=== PATIENT | female | born 1990 | race Caucasian/White ===

== ENCOUNTER → 2017-04-02 | Outpatient (CLI) | payer BC, OTHER ==
[~2017-04-02] MED LIST: PRD10T PO
--- NOTE | 2017-04-02 11:11 | Diagnostic Imaging Report ---
INDICATION: survey. TECHNIQUE: Multiple real-time grayscale images were obtained over the gravid uterus. COMPARISON: None FINDINGS: heart rate is 160 beats per minute. The placenta is posterior. No placenta previa. There is adequate amniotic fluid seen. The cervix is 3.9 cm in length and is closed. The posterior fossa appears unremarkable. No ventriculomegaly is seen. The four-chamber view, stomach, kidneys, two umbilical arteries, the cord insertion, and bladder appear unremarkable. The spine appears unremarkable. Biometrical measurements are as follows: Biparietal 5.3 cm, age 22 weeks 2 days. Head circumference 18.9 cm, age 21 weeks 2 days. Abdominal circumference 17.99 cm, age 22 weeks 6 days. Femur length 3.58 cm, age 21 weeks 3 days. Sonographic estimate age: 22 weeks 0 days. Sonographic estimated date of delivery: 08/06/2017. Estimated Weight: 475 gm (+/- 69 gm). LMP percentile: 93%. heart rate: 160 beats per minute. number: 1 of 1. IMPRESSION: Completed survey. Dictated by: Dictated on workstation # [id number]
== END ==
LOC: RAD 09:43
PROVIDERS: ATTEND Obstetrics & Gynecology
DX: Z36.89 Encounter for other specified antenatal screening (principal); Z3A.22 22 weeks gestation of pregnancy
CPT/HCPCS: 76805

== ENCOUNTER 2017-08-10 20:19 | Inpatient (IN) | payer BC ==
[~2017-08-10] VITALS: Ht 170.2 cm; Wt 93.0 kg
[2017-08-10] MEDS ORDERED: PREN-142 PO (20:41)
[2017-08-10 21:00] VITALS: BP 130/70
[2017-08-10] MEDS: D5 LR IV SOLUTION 1,000 ML IV SCH (21:25)
[2017-08-10] MEDS ORDERED: HYDROmorphone 2 MG/ML VIAL (DILAUDID) ONE (21:50)
[2017-08-10] MEDS: ONDANSETRON 4 MG/2 ML (SDV) Z0FRAN IVP PRN (21:57)
[2017-08-10] MEDS ORDERED: HYDROmorphone 1 MG/ML (DILAUDID) 1 ML SYRINGE IV ONE (22:00)
[2017-08-10 22:03] VITALS: BP 120/71
[2017-08-10 22:40] LABS: BASOPHILS % (AUTO) 0 % (0-10); EOSINOPHILS # (AUTO) 0.1 10^3/uL (0.0-0.3); EOSINOPHILS % (AUTO) 1 % (0-10); HEMATOCRIT 36 % (35-52); HEMOGLOBIN 12.7 G/DL (11.5-16.0); LYMPHOCYTES # (AUTO) 1.4 X 10^3 (1.0-4.0); LYMPHOCYTES % (AUTO) 17 % (12-44); MEAN CORPUSCULAR HGB CONC 35 G/DL (32-36); MEAN CORPUSCULAR VOLUME 87 FL (80-99); MEAN PLATELET VOLUME 11.7 FL (7.4-10.4); MONOCYTES # (AUTO) 0.7 X 10^3 (0.0-1.0); MONOCYTES % (AUTO) 8 % (0-12); NEUTROPHILS # (AUTO) 6.2 X 10^3 (1.8-7.8); NEUTROPHILS % (AUTO) 75 % (42-75); PLATELET COUNT 162 10^3/uL (130-400); RED BLOOD COUNT 4.17 10^6/uL (4.35-5.85); RED CELL DISTRIBUTION WIDTH 14.5 % (10.0-14.5); WHITE BLOOD COUNT 8.4 10^3/uL (4.3-11.0)
[2017-08-10 22:42] LABS: MEAN CORPUSCULAR HEMOGLOBIN 30 PG (25-34)
--- OUTSIDE RECORDS SUMMARY | 2017-08-10 22:46 | XMS REPORT | Continuity of Care Document ---
Demographics Preferred Language Unknown Marital Status Unknown Sikh Affiliation Unknown Race Unknown Ethnic Group Unknown Author Author [facility] Address Unknown Phone Unavailable Allergies There is no data. Medications There is no data. Problems Date Dx Coded Attending Type Code Diagnosis Diagnosed By 08/22/2012 V70.5 PREEMPLOYMENT/ PRESCHOOL EXAM Procedures Code [place] [address] URINE DRUG SCREEN (IN-HOUSE ) 08/22/2012 15267 TB TEST INTRADERMAL 08/22/2012 Results There is no data. Encounters ACCT No. Visit Date/Time Discharge Status Pt. Type Provider Facility Loc./Unit Complaint [id number] 08/22/2012 13:50:00 Document Registration
[2017-08-10] MEDS ORDERED: SUFENTA 0.6MCG/ML BUPIVA 0.125 100 ML ONE (23:26)
[2017-08-10] MEDS ORDERED: LIDOCAINE PF 2% 5 ML (XYLOCAINE) VIAL ONE (23:52)
[2017-08-10] MEDS ORDERED: BUPIVACAINE 0.25% 30 ML (SENSORCAINE) VIAL ONE (23:52)
[2017-08-10] MEDS ORDERED: fentaNYL INJECTION 100 MCG/2 ML AMP ONE (23:53)
[2017-08-10 23:56] VITALS: BP 119/76
[2017-08-10 23:59] VITALS: BP 120/78
[2017-08-11] VITALS (49 sets, daily range): BP systolic 92–141; BP diastolic 51–79
[2017-08-11] MEDS: EPIDURAL (SUFENTA 0.6MCG/ML BUPIVA 0.125%) 100 ML BAG EPI PRN ×2 (00:14→07:31)
[2017-08-11] MEDS ORDERED: LACTATED RINGERS 1,000 ML IV ONE ×2 (00:37)
[2017-08-11] MEDS ORDERED: NALOXONE 0.4 MG/ML 1 ML (NARCAN) VIAL IV PRN (00:45)
[2017-08-11] MEDS ORDERED: ONDANSETRON 4 MG/2 ML (SDV) Z0FRAN IV PRN (00:45)
[2017-08-11] MEDS: D5 LR IV SOLUTION 1,000 ML IV SCH ×3 (02:52→23:41)
[2017-08-11] MEDS: ONDANSETRON 4 MG/2 ML (SDV) Z0FRAN IVP PRN (02:54)
[2017-08-11] MEDS ORDERED: LIDOCAINE/EPI 2% 1:200,00 (XYLOCAINE) 10 ML VIAL ONE (08:11)
[2017-08-11] MEDS ORDERED: OXYTOCIN/NORMAL SALINE 1,000 ML IV ONE (08:18)
[2017-08-11] MEDS: OXYTOCIN/NORMAL SALINE 500 ML IV SCH ×2 (08:24→08:55)
--- NOTE | 2017-08-11 08:51 | OB Labor & Delivery Record ---
L&D History Date of Service Date of Service: August 11, 2017 History Expected Date of Delivery: August 13, 2017 Gestational Age in Weeks: 39 Hx : 1 Hx Para: 0 Complications Events: Meconium Stained Fluid, Routine care Operative Indications (Cesarea: N/A-Vaginal Delivery Intrapartal Events: None L&D Stage1 Stage One Onset of Labor - Date: August 11, 2017 Monitors and Tracing Monitor Mode: External Heart Rate: 120 Station: -1 Aix Administrator Variability: Average (6-10) Short Term Variability: Present Presentation: Vertex Vital Signs VS - Last 72 Hours, by Label 08/10/17 08/10/17 08/10/17 08/10/17 21:00 22:03 23:56 23:59 Temp 98.2 Pulse 75 64 65 61 Resp 18 B/P (MAP) 130/70 (90) 120/71 (87) 119/76 (90) 120/78 (92) Pulse Ox 100 100 O2 Delivery Room Air Room Air 08/11/17 08/11/17 08/11/17 08/11/17 00:02 00:05 00:08 00:11 Pulse 97 60 60 80 B/P (MAP) 116/74 (88) 119/79 (92) 110/69 (83) 129/74 (92) Pulse Ox 100 100 100 100 O2 Delivery Room Air Room Air Room Air Room Air 08/11/17 08/11/17 08/11/17 08/11/17 00:14 00:17 00:20 00:23 Pulse 75 80 85 75 B/P (MAP) 132/68 (89) 120/61 (80) 120/56 (77) 121/56 (77) Pulse Ox 100 100 100 100 O2 Delivery Room Air Room Air Room Air Room Air 08/11/17 08/11/17 08/11/17 08/11/17 00:26 00:34 00:39 00:43 Pulse 75 81 74 75 B/P (MAP) 123/65 (84) 117/65 (82) 119/63 (81) 116/57 (76) Pulse Ox 100 100 100 100 O2 Delivery Room Air Room Air Room Air Room Air 08/11/17 08/11/17 08/11/17 08/11/17 00:47 01:15 01:30 01:45 Pulse 74 67 75 71 B/P (MAP) 107/56 (73) 108/57 (74) 139/69 (92) 105/56 (72) Pulse Ox 100 100 100 100 O2 Delivery Room Air Room Air Room Air Room Air 08/11/17 08/11/17 08/11/17 08/11/17 02:00 02:15 02:30 02:45 Temp 97.8 Pulse 72 65 66 86 B/P (MAP) 130/63 (85) 125/66 (85) 122/64 (83) 128/58 (81) Pulse Ox 100 99 100 100 O2 Delivery Room Air Room Air Room Air Room Air 08/11/17 08/11/17 08/11/17 08/11/17 03:00 03:15 03:30 03:45 Pulse 71 71 81 72 B/P (MAP) 128/67 (87) 119/68 (85) 131/68 (89) 120/65 (83) Pulse Ox 100 100 100 100 O2 Delivery Room Air Room Air Room Air Room Air 08/11/17 08/11/17 08/11/17 08/11/17 04:00 04:15 04:30 04:45 Pulse 74 87 95 80 B/P (MAP) 118/64 (82) 125/75 (92) 141/73 (95) 135/71 (92) Pulse Ox 100 100 100 100 O2 Delivery Room Air Room Air Room Air Room Air 08/11/17 08/11/17 08/11/17 08/11/17 05:00 05:15 05:30 05:45 Pulse 92 80 105 81 B/P (MAP) 130/69 (89) 124/68 (86) 117/76 (90) 132/78 (96) Pulse Ox 100 100 100 100 O2 Delivery Room Air Room Air Room Air Room Air 08/11/17 08/11/17 08/11/17 08/11/17 06:00 06:15 06:30 06:45 Pulse 93 86 88 90 B/P (MAP) 136/79 (98) 133/60 (84) 117/68 (84) Pulse Ox 100 100 100 100 O2 Delivery Room Air Room Air Room Air Room Air 08/11/17 07:00 Pulse 78 B/P (MAP) 113/65 (81) Pulse Ox 100 O2 Delivery Room Air Rupture of Membranes Spontaneous Ruture of Membrane: No Amniotic Membrane Rupture Time: 08:00 Amniotic Membrane Fluid Desc.: Meconium Stained Vaginal Bleeding Description: Normal Show Progress/Notes natural labor progression to complete with bulging membranes. AROM this AM with mec stained fluid L&D Stage2 Stage Two Stage II Date: August 11, 2017 Monitors and Tracing Monitor Mode: External Heart Rate: 120 Monitor Decelerations: Variable Aix Administrator Variability: Average (6-10) Short Term Variability: Present Position: Right Occiput Anterior Presentation: Vertex Cord Descript/Complications Cord Vessel Description: 3 Vessels Delivery Type Delivery Method: Spontaneous Vaginal Anterior Shoulder: Right Episiotomy/Perineal Laceration Laceraction(s)/Extensions: Yes Episiotomy Description: Right Mediolateral Sutures Used: Vicryl Degree (describe repair) RML and left labial laceration repaired using 3-0 and 2-0 vicryl suture in usual fashion Condition of Delivery 1 minute Comment: 8 5 minute Comment: 9 Notes Live male weight 8lbs 2 oz Condition of Infant Condition of : Living Exam: No Observed Abnormalities Resuscitation Resuscitation: N/A - Spontaneous Resp L&D Stage3 Stage Three Stage III Date: August 11, 2017 Pictocin Pitocin Administration Comment: wide open 30 mu at delivery of placenta Placenta Delivery Placenta Delivery: Spontaneous Delivery Summary Summary Estimated blood loss (mL): 400 Attending at delivery: Michael Natarajan DO Condition of Delivery Examined: Cervix Examined, Uterus Explored Post Hemorrhage: No Condition of Mother stable Condition of (s) stable MICHAEL NATARAJAN DO August 11, 2017 8:51 am
[2017-08-11] MEDS ORDERED: DIBUCAINE (NUPERCAINAL) 1% OINT 30 GM TOP PRN (09:00)
[2017-08-11] MEDS ORDERED: HYDROcodone/APAP 5 MG/325 MG (LORTAB) TAB PO PRN (09:00)
[2017-08-11] MEDS ORDERED: TETANUS,DIPTH,PERTUSS P/F (BOOSTRIX) 0.5 ML VIAL IM ONE (09:00)
[2017-08-11] MEDS ORDERED: MEASLES,MUMPS,RUBELLA 1 EA INJ SQ ONE (09:00)
[2017-08-11] MEDS ORDERED: WITCH HAZEL(TUCKS) 40 EA JAR TOP PRN (09:00)
[2017-08-11] MEDS ORDERED: BENZOCAINE/MENTHOL (DERMOPLAST) 56 ML CAN TP PRN (09:00)
[2017-08-11] MEDS: IBUPROFEN 600 MG (MOTRIN) TAB PO SCH ×3 (09:45→20:50)
--- NOTE | 2017-08-11 12:10 | History & Physical-OB ---
OB - Chief Complaint & HPI Date/Time Date of Admission: Date of Admission: August 10, 2017 at 9:43 pm Time Seen by Provider: 08:00 Chief Complaint/History OB-Reason for Admission/Chief: Onset of Labor Hx : 1 Hx Para: 0 Expected Date of Delivery: August 13, 2017 Gestational Age in Weeks: 39 Gestational Age in Days: 5 Admission Nurse Assessment Rev: Yes History of Labs O pos Antibody neg RI RPR NR HBsAg NR HIV NR GC neg GBS neg Allergies and Home Medications Allergies Coded Allergies: No Known Drug Allergies (Unverified , 01/30/16) Home Medications Prednisone 10 Mg Tab, 40 MG PO DAILY Prescribed by: SURINDER RODRÍGUEZ on 01/30/16 0010 Vit No.124/Iron/FA 1 Each Tablet, 1 EACH PO DAILY, (Reported) Patient Home Medication List Home Medication List Reviewed: Yes OB - History Hx of Present Care: Yes Ultrasounds: Normal mid trimester US Obstetrical Complications: None Medical Complications: None Obstetrical History Hx : 1 Hx Para: 0 Delivery History Adverse Rxn to Tranfusion: No Patient Past Medical History n/a Social History/Family History HIV/AIDS: No Recent Infectious Disease Expo: No Sexually Transmitted Disease: No Alcohol Use: Denies Use Recreational Drug Use: No OB - Admission Exam Physical Exam Vitals: Vital Signs 08/10/17 08/11/17 08/11/17 21:00 02:45 07:00 Temp 97.8 Pulse 78 Resp 18 B/P (MAP) 113/65 (81) Pulse Ox 100 O2 Delivery Room Air HEENT: NCAT Heart: Rhythm Normal Lungs: Clear Abdomen: Gravid Extremities: Normal Reflexes: Normal Cervical Dilatation: 4cm Effacement: 75% Station: -1 Membranes: Intact Heart Rate: 130's Accelerations: Accelerations Present Decelerations: No Decelerations Short Term Variability: Present Skilled Nursing Variability: Average (6-25) Contractions on Admission: < 5 Minutes Apart Intensity: Firm Labs Laboratory Tests Test 08/10/17 22:30 Range/Units White Blood Count 8.4 4.3-11.0 10^3/uL Red Blood Count 4.17 L 4.35-5.85 10^6/uL Hemoglobin 12.7 11.5-16.0 G/DL Hematocrit 36 35-52 % Mean Corpuscular Volume 87 80-99 FL Mean Corpuscular Hemoglobin 30 25-34 PG Mean Corpuscular Hemoglobin Concent 35 32-36 G/DL Red Cell Distribution Width 14.5 10.0-14.5 % Platelet Count 162 130-400 10^3/uL Mean Platelet Volume 11.7 H 7.4-10.4 FL Neutrophils (%) (Auto) 75 42-75 % Lymphocytes (%) (Auto) 17 12-44 % Monocytes (%) (Auto) 8 0-12 % Eosinophils (%) (Auto) 1 0-10 % Basophils (%) (Auto) 0 0-10 % Neutrophils # (Auto) 6.2 1.8-7.8 X 10^3 Lymphocytes # (Auto) 1.4 1.0-4.0 X 10^3 Monocytes # (Auto) 0.7 0.0-1.0 X 10^3 Eosinophils # (Auto) 0.1 0.0-0.3 10^3/uL Basophils # (Auto) 0.0 0.0-0.1 10^3/uL OB - Assessment/Plan/Diagnosis Assessment Assessment: active labor Admission Dx 27 yo @ 39.5 Active labor GBS neg Admission Status: Inpatient Order (span 2 midnights) Reason for Inpatient Admission: 27 yo @ 39.5 Active labor GBS neg Plan Plan: Expectant Management MICHAEL NATARAJAN DO August 11, 2017 12:10 pm
[2017-08-11] MEDS: DOCUSATE SODIUM 100 MG (COLACE) CAP PO SCH ×2 (20:50→23:41)
[2017-08-11] MEDS: FERROUS SULF 325 MG (IRON) TAB PO SCH (23:40)
[2017-08-11] MEDS: CATHETER FLUSH 10 ML SYR IV SCH ×2 (23:41→23:42)
[2017-08-12 03:09] VITALS: BP 99/66
[2017-08-12] MEDS: IBUPROFEN 600 MG (MOTRIN) TAB PO SCH ×2 (03:09→08:59)
[2017-08-12 05:50] LABS: BASOPHILS % (AUTO) 0 % (0-10); EOSINOPHILS # (AUTO) 0.1 10^3/uL (0.0-0.3); EOSINOPHILS % (AUTO) 1 % (0-10); HEMATOCRIT 28 % (35-52); HEMOGLOBIN 9.8 G/DL (11.5-16.0); LYMPHOCYTES # (AUTO) 2.5 X 10^3 (1.0-4.0); LYMPHOCYTES % (AUTO) 22 % (12-44); MEAN CORPUSCULAR HEMOGLOBIN 30 PG (25-34); MEAN CORPUSCULAR HGB CONC 35 G/DL (32-36); MEAN CORPUSCULAR VOLUME 88 FL (80-99); MEAN PLATELET VOLUME 11.7 FL (7.4-10.4); MONOCYTES # (AUTO) 0.8 X 10^3 (0.0-1.0); MONOCYTES % (AUTO) 7 % (0-12); NEUTROPHILS # (AUTO) 7.9 X 10^3 (1.8-7.8); NEUTROPHILS % (AUTO) 70 % (42-75); PLATELET COUNT 153 10^3/uL (130-400); RED BLOOD COUNT 3.24 10^6/uL (4.35-5.85); RED CELL DISTRIBUTION WIDTH 14.5 % (10.0-14.5); WHITE BLOOD COUNT 11.3 10^3/uL (4.3-11.0)
[2017-08-12] MEDS ORDERED: PRENATAL VITAMIN 1 EA TAB PO SCH (07:00)
--- NOTE | 2017-08-12 08:14 | Discharge Inst-Women's Service ---
Discharge Inst-Women's Serv Depart Medication/Instructions New, Converted or Re-Newed RX: RX on Chart Consults/Follow Up Additional Follow Up: Yes Orders/Referrals Dr. Natarajan in 6 weeks Activity Activity: Activity as Tolerated Driving Instructions: No Driving for 1 Week NO SMOKING: NO SMOKING Nothing Inside Vagina: No Douching, No [place], No Tampons Diet Discharge Diet: No Restrictions Symptoms to Report to : Bleeding Excessive, Pain Increased, Fever Over 101 Degrees F, Vaginal Bleeding Increase, Questions/Concerns For Any Problems or Questions: Contact Your Physician Skin/Wound Care Bathing Instructions: Shower (or sitz baths x 2 weeks) MICHAEL NATARAJAN DO August 12, 2017 08:14
[2017-08-12] MEDS ORDERED: IBUP-844 PO (08:16)
[2017-08-12] MEDS ORDERED: DIBU30OI TOP (08:16)
[2017-08-12] MEDS ORDERED: FERR325T18 PO (08:16)
[2017-08-12] MEDS ORDERED: Benzocaine/Menthol TP (08:16)
[2017-08-12] MEDS ORDERED: ACHD5005 PO (08:16)
[2017-08-12] MEDS ORDERED: DOCU100C37 PO (08:16)
--- NOTE | 2017-08-12 08:30 | Postpartum Progress Note ---
Note Note Day # 1 Subjective: Patient is without complaints. Ambulating, voiding. Tolerating a regular diet without nausea or vomiting. Normal lochia. Pain is well controlled with oral pain medications. Objective: Vital Sign - Last 24 Hours 08/11/17 08/11/17 08/11/17 08/11/17 08:30 09:00 09:15 09:30 Pulse 107 96 90 89 B/P (MAP) 135/78 (97) 119/62 (81) 118/57 (77) 120/59 (79) O2 Delivery Room Air Room Air Room Air Room Air 08/11/17 08/11/17 08/11/17 08/11/17 10:50 13:50 18:45 23:31 Temp 98.0 98.0 98.1 Pulse 92 75 70 68 Resp 18 18 18 B/P (MAP) 100/51 (67) 111/66 (81) 115/68 (84) 92/51 (65) Pulse Ox 100 99 O2 Delivery Room Air Room Air Room Air Room Air 08/12/17 03:09 Temp 97.4 Pulse 64 Resp 18 B/P (MAP) 99/66 (77) Pulse Ox 100 O2 Delivery Room Air Physical Exam: General - Alert and oriented, no apparent distress Abdomen - Soft, appropriately tender to palpation, non-distended, fundus firm at umbilicus Extremities - no edema, negative Barb's bilaterally Assessment: PPD 1 NVD Acute blood loss anemia Plan: Routine care. Encourage breast feeding. Encourage ambulation. Ferrous sulfate supplementation. Plan for discharge today Vitals - Labs Vital Signs - I&O Vital Signs Date Time Temp Pulse Resp B/P (MAP) Pulse Ox O2 Delivery O2 Flow Rate FiO2 08/12/17 03:09 97.4 64 18 99/66 (77) 100 Room Air 08/11/17 23:31 98.1 68 18 92/51 (65) 99 Room Air 08/11/17 18:45 98.0 70 18 115/68 (84) Room Air 08/11/17 13:50 98.0 75 18 111/66 (81) 100 Room Air 08/11/17 10:50 92 100/51 (67) Room Air 08/11/17 09:30 89 120/59 (79) Room Air 08/11/17 09:15 90 118/57 (77) Room Air 08/11/17 09:00 96 119/62 (81) Room Air 08/11/17 08:30 107 135/78 (97) Room Air Labs Laboratory Tests 08/12/17 05:13: White Blood Count 11.3H, Red Blood Count 3.24L, Hemoglobin 9.8#L, Hematocrit 28L , Mean Corpuscular Volume 88, Mean Corpuscular Hemoglobin 30, Mean Corpuscular Hemoglobin Concent 35, Red Cell Distribution Width 14.5, Platelet Count 153, Mean Platelet Volume 11.7H, Neutrophils (%) (Auto) 70, Lymphocytes (%) (Auto) 22 , Monocytes (%) (Auto) 7, Eosinophils (%) (Auto) 1, Basophils (%) (Auto) 0, Neutrophils # (Auto) 7.9H, Lymphocytes # (Auto) 2.5, Monocytes # (Auto) 0.8, Eosinophils # (Auto) 0.1, Basophils # (Auto) 0.0 MICHAEL NATARAJAN DO August 12, 2017 8:30 am
[2017-08-12 08:40] VITALS: BP 102/62
[2017-08-12] MEDS: DOCUSATE SODIUM 100 MG (COLACE) CAP PO SCH (08:59)
[2017-08-12] MEDS: FERROUS SULF 325 MG (IRON) TAB PO SCH (08:59)
[2017-08-12] MEDS ORDERED: MEASLES,MUMPS,RUBELLA 1 EA INJ ONE (09:03)
[2017-08-12 12:30] VITALS: BP 102/62
== END 2017-08-12 12:30 | disposition home or self-care (01) | DRG 775 ==
LOC: WSo 20:19 → LDRP 20:20 → WSo 22:41 → LDRP 08-11 11:10
PROVIDERS: ADMIT Obstetrics & Gynecology; ATTEND Obstetrics & Gynecology
PROC: 10E0XZZ Delivery of Products of Conception, External Approach (ICD-10-PCS; principal; 2017-08-11)
PROC: 0HQ9XZZ Repair Perineum Skin, External Approach (ICD-10-PCS; 2017-08-11)
DX: O77.0 Labor and delivery complicated by meconium in amniotic fluid (principal); O70.0 First degree perineal laceration during delivery; O90.81 Anemia of the puerperium; D62 Acute posthemorrhagic anemia; Z3A.39 39 weeks gestation of pregnancy; Z37.0 Single live birth; Z23 Encounter for immunization
CPT/HCPCS: 36415; 85025; 86850; 86900; 86901; 88307; 90707; 99212

== ENCOUNTER → 2018-12-30 | Outpatient (CLI) | payer BC ==
[~2018-12-30] MED LIST changes: +ACHD5005 PO; +Benzocaine/Menthol TP; +DIBU30OI TOP; +DOCU100C37 PO; +FERR325T18 PO; +IBUP-844 PO; +PREN-142 PO
--- NOTE | 2018-12-30 17:32 | Diagnostic Imaging Report ---
INDICATION: survey. TECHNIQUE: Multiple real-time grayscale images were obtained over the gravid uterus. COMPARISON: There are no prior studies available for comparison. FINDINGS: There is a single live fetus in cephalic presentation. heart motion was noted and a rate of 133 bpm was recorded. There were no abnormalities identified. The growth parameters are fairly uniform. The placenta is anterior and there is no previa. The amniotic fluid volume is within normal limits. The cervix was identified and measures 3.3 cm in length. IMPRESSION: 1. There is a single live fetus of approximately 18 weeks 2 days gestation plus or -1.5 weeks. The EDC is May 31, 2019. 2. There were no abnormalities identified. 3. The growth parameters are fairly uniform. Biometrical measurements are as follows: Biparietal 3.89 cm, age 17 weeks 6 days. Head circumference 14.55 cm, age 17 weeks 6 days. Abdominal circumference 12.66 cm, age 18 weeks 2 days. Femur length 2.85 cm, age 18 weeks 6 days. Sonographic estimate age: 18 weeks 2 days. Sonographic estimated date of delivery: 05/31/2019. Estimated Weight: 238 gm (+/- 35 gm). LMP percentile: 94%. heart rate: 133 beats per minute. number: 1 of 1. Dictated by: Dictated on workstation # [id number]
== END ==
LOC: RAD 15:34
PROVIDERS: ATTEND Nurse Practitioner Women's Health
DX: Z34.92 Encounter for supervision of normal pregnancy, unspecified, second trimester (principal); Z3A.18 18 weeks gestation of pregnancy
CPT/HCPCS: 76805

== ENCOUNTER 2019-05-27 04:07 | Inpatient (IN) | payer BC ==
[2019-05-27] VITALS (28 sets, daily range): BP systolic 95–168; BP diastolic 51–81
[2019-05-27] MEDS ORDERED: D5 LR IV SOLUTION 1,000 ML IV ONE (04:23)
[2019-05-27] MEDS ORDERED: D5 LR IV SOLUTION 1,000 ML IV SCH (05:02)
[2019-05-27 05:22] LABS: BASOPHILS % (AUTO) 0 % (0-10); EOSINOPHILS # (AUTO) 0.1 10^3/uL (0.0-0.3); EOSINOPHILS % (AUTO) 1 % (0-10); HEMATOCRIT 36 % (35-52); HEMOGLOBIN 12.2 G/DL (11.5-16.0); LYMPHOCYTES # (AUTO) 2.2 X 10^3 (1.0-4.0); LYMPHOCYTES % (AUTO) 21 % (12-44); MEAN CORPUSCULAR HEMOGLOBIN 29 PG (25-34); MEAN CORPUSCULAR HGB CONC 34 G/DL (32-36); MEAN CORPUSCULAR VOLUME 85 FL (80-99); MEAN PLATELET VOLUME 11.5 FL (7.4-10.4); MONOCYTES # (AUTO) 0.7 X 10^3 (0.0-1.0); MONOCYTES % (AUTO) 7 % (0-12); NEUTROPHILS # (AUTO) 7.2 X 10^3 (1.8-7.8); NEUTROPHILS % (AUTO) 71 % (42-75); PLATELET COUNT 171 10^3/uL (130-400); RED CELL DISTRIBUTION WIDTH 14.7 % (10.0-14.5); WHITE BLOOD COUNT 10.1 10^3/uL (4.3-11.0)
[2019-05-27] MEDS ORDERED: LIDOCAINE PF 2% 5 ML (XYLOCAINE) VIAL ONE (05:41)
[2019-05-27] MEDS ORDERED: fentaNYL INJECTION 100 MCG/2 ML AMP ONE (05:41)
[2019-05-27] MEDS ORDERED: BUPIVACAINE 0.25% 30 ML (SENSORCAINE) VIAL ONE (05:41)
[2019-05-27] MEDS ORDERED: SUFENTA 0.6MCG/ML BUPIVA 0.125 100 ML ONE (05:44)
[2019-05-27] MEDS ORDERED: CATHETER FLUSH 10 ML SYR IV SCH ×4 (06:00→14:00)
[2019-05-27] MEDS ORDERED: LACTATED RINGERS 1,000 ML IV ONE ×2 (06:12)
[2019-05-27] MEDS ORDERED: ONDANSETRON 4 MG/2 ML (SDV) Z0FRAN IV PRN (06:15)
[2019-05-27] MEDS ORDERED: NALOXONE 0.4 MG/ML 1 ML (NARCAN) VIAL IV PRN (06:15)
[2019-05-27] MEDS ORDERED: EPIDURAL (SUFENTA 0.6MCG/ML BUPIVA 0.125%) 100 ML BAG EPI PRN (06:15)
[2019-05-27] MEDS ORDERED: LIDOCAINE/EPI 2% 1:200,00 (XYLOCAINE) 10 ML VIAL ONE (08:09)
[2019-05-27] MEDS ORDERED: OXYTOCIN PRE-MIX DRIP 500 ML IV ONE ×2 (08:09→09:11)
[2019-05-27] MEDS ORDERED: OXYTOCIN PRE-MIX DRIP 500 ML IV SCH ×2 (09:21→11:51)
[2019-05-27] MEDS ORDERED: MEASLES,MUMPS,RUBELLA 1 EA INJ SQ ONE ×2 (09:30→12:00)
[2019-05-27] MEDS ORDERED: DIBUCAINE (NUPERCAINAL) 1% OINT 30 GM TOP PRN ×3 (09:30→12:15)
[2019-05-27] MEDS ORDERED: BENZOCAINE/MENTHOL (DERMOPLAST) 60 ML CAN TP PRN ×3 (09:30→12:15)
[2019-05-27] MEDS ORDERED: TETANUS,DIPTH,PERTUSS P/F (BOOSTRIX) 0.5 ML VIAL IM ONE ×2 (09:30→12:00)
[2019-05-27] MEDS ORDERED: WITCH HAZEL(TUCKS) 40 EA JAR TOP PRN ×3 (09:30→12:15)
--- NOTE | 2019-05-27 11:20 | NUR ---
REPORT RECEIVED BY SHIVAM ALVAREZ AT THIS TIME
--- NOTE | 2019-05-27 11:25 | History & Physical-OB ---
OB - Chief Complaint & HPI Date/Time Date of Admission: Date of Admission: May 27, 2019 at 4:43 am Date seen by a Provider: May 27, 2019 Time Seen by a Provider: 05:00 Chief Complaint/History OB-Reason for Admission/Chief: Onset of Labor Hx : 2 Hx Para: 1 Expected Date of Delivery: Jun 06, 2019 Gestational Age in Weeks: 38 Gestational Age in Days: 4 Admission Nurse Assessment Rev: Yes History of Labs RI GBS neg Allergies and Home Medications Allergies Coded Allergies: No Known Drug Allergies (Unverified , 01/30/16) Home Medications Dibucaine 30 Gm Oint, 0 GM TOP UD PRN for PAIN- SEE INSTRUCTIONS Prescribed by: MICHAEL NATARAJAN on 08/12/17815 Docusate Sodium 100 Mg Capsule, 100 MG PO BID PRN for CONSTIPATION-1ST LINE Prescribed by: MICHAEL NATARAJAN on 08/12/17815 Ferrous Sulfate 325 Mg Tablet, 325 MG PO DAILY Prescribed by: MICHAEL NATARAJAN on 08/12/17815 Hydrocodone Bit/Acetaminophen 1 Tab Tab, 1-2 TAB PO Q4H PRN for PAIN-MODERATE Prescribed by: MICHAEL NATARAJAN on 08/12/17815 Ibuprofen 600 Mg Tablet, 600 MG PO Q6H Prescribed by: MICHAEL NATARAJAN on 08/12/17815 Vit No.124/Iron/FA 1 Each Tablet, 1 EACH PO DAILY, (Reported) [Benzocaine/Menthol] 56 ML AEROSOL, 56 ML TP UD PRN for PAIN- SEE INSTRUCTIONS EXTERNAL USE ONLY Prescribed by: MICHAEL NATARAJAN on 08/12/17815 Patient Home Medication List Home Medication List Reviewed: Yes OB - History Hx of Present Care: Yes Ultrasounds: Normal mid trimester US Obstetrical Complications: None Medical Complications: None Delivery History Adverse Rxn to Tranfusion: No Patient Past Medical History n/a Social History/Family History HIV/AIDS: No Recent Infectious Disease Expo: No Sexually Transmitted Disease: No Alcohol Use: Denies Use Recreational Drug Use: No OB - Admission Exam Physical Exam Vitals: Vital Signs 05/27/19 05/27/19 05:00 08:45 Temp 36.3 Pulse 63 Resp 18 B/P (MAP) 101/60 (74) Pulse Ox 100 HEENT: NCAT Heart: Rhythm Normal Lungs: Clear Abdomen: Gravid Extremities: Normal Reflexes: Normal Cervical Dilatation: 6cm Effacement: 75% Station: -1 Membranes: Intact Heart Rate: 140's Accelerations: Accelerations Present Decelerations: No Decelerations Short Term Variability: Present Weed Science Research Technician Variability: Average (6-25) Contractions on Admission: < 5 Minutes Apart Intensity: Firm Labs Laboratory Tests Test 05/27/19 05:05 Range/Units White Blood Count 10.1 4.3-11.0 10^3/uL Red Blood Count 4.23 L 4.35-5.85 10^6/uL Hemoglobin 12.2 11.5-16.0 G/DL Hematocrit 36 35-52 % Mean Corpuscular Volume 85 80-99 FL Mean Corpuscular Hemoglobin 29 25-34 PG Mean Corpuscular Hemoglobin Concent 34 32-36 G/DL Red Cell Distribution Width 14.7 H 10.0-14.5 % Platelet Count 171 130-400 10^3/uL Mean Platelet Volume 11.5 H 7.4-10.4 FL Neutrophils (%) (Auto) 71 42-75 % Lymphocytes (%) (Auto) 21 12-44 % Monocytes (%) (Auto) 7 0-12 % Eosinophils (%) (Auto) 1 0-10 % Basophils (%) (Auto) 0 0-10 % Neutrophils # (Auto) 7.2 1.8-7.8 X 10^3 Lymphocytes # (Auto) 2.2 1.0-4.0 X 10^3 Monocytes # (Auto) 0.7 0.0-1.0 X 10^3 Eosinophils # (Auto) 0.1 0.0-0.3 10^3/uL Basophils # (Auto) 0.0 0.0-0.1 10^3/uL OB - Assessment/Plan/Diagnosis Assessment Assessment: active labor Admission Dx 29 yo @ 38 weeks Active labor GBS neg Admission Status: Inpatient Order (span 2 midnights) Reason for Inpatient Admission: Active labor at term Plan Plan: Expectant Management MICHAEL NATARAJAN DO May 27, 2019 11:25 am
--- NOTE | 2019-05-27 11:30 | OB Labor & Delivery Record ---
L&D History Date of Service Date of Service: May 27, 2019 History Expected Date of Delivery: Jun 06, 2019 Gestational Age in Weeks: 38 Hx : 2 Hx Para: 1 Complications Events: Routine care Operative Indications (Cesarea: N/A-Vaginal Delivery Intrapartal Events: None L&D Stage1 Stage One Onset of Labor - Date: May 27, 2019 Monitors and Tracing Monitor Mode: External Heart Rate: 105 Monitor Accelerations: Uniform Monitor Decelerations: None Station: -1 Property And Supply Officer Variability: Average (6-10) Short Term Variability: Present Presentation: Vertex Vital Signs VS - Last 72 Hours, by Label 05/27/19 05/27/19 05/27/19 05/27/19 05:00 05:45 05:47 05:53 Temp 36.3 Pulse 70 71 73 72 Resp 18 B/P (MAP) 112/72 (85) 102/54 (70) 128/80 (96) Pulse Ox 100 100 100 05/27/19 2 2/ 2/ 05:54 05:58 06:00 06:02 Pulse 69 65 71 97 B/P (MAP) 117/81 (93) 119/78 (92) 132/76 (94) Pulse Ox 100 100 100 100 05/27/ 2// 2// 2/ 06:07 06:12 06:15 06:19 Pulse 90 90 93 91 B/P (MAP) 102/61 (75) 105/57 (73) 113/51 (71) Pulse Ox 100 100 100 100 05/27/ 2//20 2//20 2/ 06:30 06:45 07:00 07:20 Pulse 75 85 84 83 B/P (MAP) 95/52 (66) 118/78 (91) 108/65 (79) 104/57 (73) Pulse Ox 100 100 100 100 2//20 2//20 2//20 2//20 07:30 08:00 08:15 08:35 Pulse 83 76 68 68 B/P (MAP) 107/73 (84) 109/69 (82) 108/57 (74) 102/63 (76) Pulse Ox 100 100 100 100 2/20/20 08:45 Pulse 63 B/P (MAP) 101/60 (74) Pulse Ox 100 Rupture of Membranes Spontaneous Ruture of Membrane: No Amniotic Membrane Rupture Time: 08:00 Amniotic Membrane Fluid Desc.: Clear Vaginal Bleeding Description: Normal Show Induction/Anesthesia Epidural Cath Placement - Time: 0558 Progress/Notes Patient presented at 5 am in active labor, IV fluid bolus given and patient received epidural. She progressed to complete and +1 station with bulging membranes when I performed amniotomy. L&D Stage2 Stage Two Stage II Date: May 27, 2019 Monitors and Tracing Monitor Mode: External Heart Rate: 105 Monitor Accelerations: Uniform Monitor Decelerations: Variable Fci Variability: Average (6-10) Short Term Variability: Present Position: Right Occiput Anterior Presentation: Vertex Cord Descript/Complications Cord Vessel Description: 3 Vessels Delivery Type Delivery Method: Spontaneous Vaginal Anterior Shoulder: Right Episiotomy/Perineal Laceration Laceraction(s)/Extensions: Yes Degree (describe repair) 2nd degree perineal and right labial laceration repaired using 3-0 rapide suture in usual fashion Condition of Infant Delivery 1 minute Comment: 9 5 minute Comment: 9 Notes Live male infant weight 7lbs 13 oz. Condition of Infant Condition of Infant: Living Exam: No Observed Abnormalities Resuscitation Resuscitation: N/A - Spontaneous Resp L&D Stage3 Stage Three Stage III Date: May 27, 2019 Pictocin Pitocin Administration Comment: 30 mu wide open at delivery of placenta Placenta Delivery Placenta Delivery: Spontaneous Delivery Summary Summary Estimated blood loss (mL): 250 Attending at delivery: Michael Natarajan DO Condition of Delivery Examined: Cervix Examined, Uterus Explored Post Hemorrhage: No Condition of Mother stable Condition of (s) stable MICHAEL NATARAJAN DO May 27, 2019 11:30 am
[2019-05-27] MEDS ORDERED: DCS100C PO (11:36)
[2019-05-27] MEDS ORDERED: BENZ78AE2 TP (11:36)
[2019-05-27] MEDS ORDERED: IBUP-844 PO (11:36)
[2019-05-27] MEDS ORDERED: DIBU30OI TOP (11:36)
--- NOTE | 2019-05-27 11:37 | Discharge Inst-Women's Service ---
Discharge Inst-Women's Serv Depart Medication/Instructions New, Converted or Re-Newed RX: RX on Chart Final Diagnosis PPD 1 NVD Problems Reviewed?: Yes Consults/Follow Up Additional Follow Up: Yes Orders/Referrals Dr. Natarajan in 6 weeks Activity Activity: Activity as Tolerated Driving Instructions: No Driving for 1 Week NO SMOKING: NO SMOKING Nothing Inside Vagina: No Douching, No [place], No Tampons Diet Discharge Diet: No Restrictions Symptoms to Report to : Bleeding Excessive, Pain Increased, Fever Over 101 Degrees F, Vaginal Bleeding Increase, Questions/Concerns For Any Problems or Questions: Contact Your Physician MICHAEL NATARAJAN DO May 27, 2019 11:37 am
--- NOTE | 2019-05-27 11:45 | NUR ---
THIS RN CALLS DR NATARAJAN AT THIS TIME. DISCUSS ORDERS. ORDERS ARE PLACED PENDING ORDERS. DR DOES NOT HAVE THE TIME AT THE MOMENT TO FIX ORDERS, RN WILL GET IT FIGURED OUT AND REPLACE ORDER SET CORRECTLY. RN NOTIFIES THAT PT IS REQUESTING TO DC IV AT THIS TIME, STATES IT IS VERY PAINFUL. PT WAS A VERY DIFFICULT STICK TO PLACE CURRENTLY IV, TOOK 4+ ATTEMPTS ON PRINCIPAL CYBER ENGINEER (BY CHAIN SAW OPERATOR) TO PLACE. PT IS STABLE, BLEEDING SMALL AMOUNT, PITOCIN INFUSED. DR NATARAJAN OKAY TO DC IV AT THIS TIME.
[2019-05-27] MEDS ORDERED: IBUPROFEN 600 MG (MOTRIN) TAB PO ONE (11:56)
[2019-05-27] MEDS: IBUPROFEN 600 MG (MOTRIN) TAB PO SCH ×3 (12:00→23:54)
[2019-05-27] MEDS ORDERED: IBUPROFEN 600 MG (MOTRIN) TAB PO SCH ×2 (12:00)
--- NOTE | 2019-05-27 12:05 | NUR ---
THIS RN AT BEDSIDE, INTRODUCES SELF TO TO PT AND FAMILY. PHYSICAL ASSESSMENT COMPLETED, VSS, FUNDUS FIRM MIDLINE 2 BELOW UMBILICUS, LIGHT BLEEDING. PT WALKING WELL ON OWN TO BATHROOM. VISITORS AT BEDSIDE. CALL LIGHT WITHIN REACH.
[2019-05-27] MEDS ORDERED: DOCUSATE SODIUM 100 MG (COLACE) CAP PO SCH ×2 (21:00)
[2019-05-27] MEDS: DOCUSATE SODIUM 100 MG (COLACE) CAP PO SCH (23:54)
[2019-05-28 04:30] VITALS: BP 92/52
[2019-05-28 05:40] LABS: BASOPHILS % (AUTO) 0 % (0-10); EOSINOPHILS # (AUTO) 0.1 10^3/uL (0.0-0.3); EOSINOPHILS % (AUTO) 1 % (0-10); HEMATOCRIT 31 % (35-52); HEMOGLOBIN 10.3 G/DL (11.5-16.0); LYMPHOCYTES # (AUTO) 2.4 X 10^3 (1.0-4.0); LYMPHOCYTES % (AUTO) 22 % (12-44); MEAN CORPUSCULAR HEMOGLOBIN 29 PG (25-34); MEAN CORPUSCULAR HGB CONC 33 G/DL (32-36); MEAN CORPUSCULAR VOLUME 87 FL (80-99); MEAN PLATELET VOLUME 11.4 FL (7.4-10.4); MONOCYTES # (AUTO) 0.8 X 10^3 (0.0-1.0); MONOCYTES % (AUTO) 7 % (0-12); NEUTROPHILS # (AUTO) 7.6 X 10^3 (1.8-7.8); NEUTROPHILS % (AUTO) 70 % (42-75); PLATELET COUNT 167 10^3/uL (130-400); RED CELL DISTRIBUTION WIDTH 14.8 % (10.0-14.5); WHITE BLOOD COUNT 10.8 10^3/uL (4.3-11.0)
--- NOTE | 2019-05-28 07:23 | Anesthesia-Regional Post-Op ---
Regional Patient Condition Mental Status: Alert, Oriented x3 Circulation: Same as Pre-Op Headache: Absent Sensation: Full Recovery Motor Block: Absent Post Op Complications Complications None Follow Up Care/Instructions Patient Instructions None needed. Anesthesia/Patient Condition Patient is doing well, no complaints, stable vital signs, no apparent adverse anesthesia problems. No complications reported per nursing. D/C home per [facility] [place] Criteria: STEVE Carty CRNA May 28, 2019 07:23
--- NOTE | 2019-05-28 07:26 | Postpartum Progress Note ---
GISELE HANCOCK,MED STUDENT 05/28/19 0726: Note Note Day # 1 Subjective: Patient is without complaints. Ambulating, voiding. Tolerating a regular diet without nausea or vomiting. Normal lochia. Pain is well controlled with oral pain medications. Objective: Physical Exam: General - Alert and oriented, no apparent distress Abdomen - Soft, appropriately tender to palpation, non-distended, fundus firm at umbilicus Extremities - no edema, negative Barb's bilaterally Assessment: post- day # 1, status post spontaneous vaginal delivery. Hemodynamically stable hypotensive Plan: Routine care. Encourage breast feeding. Encourage ambulation. Ferrous sulfate supplementation. Plan for discharge today Vitals - Labs Vital Signs - I&O Vital Signs Date Time Temp Pulse Resp B/P (MAP) Pulse Ox O2 Delivery O2 Flow Rate FiO2 05/28/19 04:30 36.4 81 18 92/52 (65) 99 05/27/19 23:50 35.8 84 18 96/61 (73) 99 05/27/19 20:15 36.3 73 18 112/68 (83) 100 05/27/19 16:00 36.7 78 18 97/52 (67) 100 Room Air 05/27/19 12:05 36.1 85 18 111/57 (75) 100 Room Air 05/27/19 10:15 36.8 71 20 168/72 (104) 05/27/19 10:00 36.9 65 20 101/68 (79) 05/27/19 09:45 36.6 66 20 100/62 (75) 05/27/19 09:30 36.7 64 20 113/65 (81) 05/27/19 09:23 37.0 64 20 106/61 (76) 05/27/19 09:00 36.9 75 20 107/66 (80) 05/27/19 08:45 63 101/60 (74) 100 05/27/19 08:35 68 102/63 (76) 100 05/27/19 08:15 68 108/57 (74) 100 05/27/19 08:00 76 109/69 (82) 100 05/27/19 07:30 83 107/73 (84) 100 Labs Laboratory Tests 05/28/19 05:20: White Blood Count 10.8, Red Blood Count 3.57L, Hemoglobin 10.3L, Hematocrit 31L, Mean Corpuscular Volume 87, Mean Corpuscular Hemoglobin 29, Mean Corpuscular Hemoglobin Concent 33, Red Cell Distribution Width 14.8H, Platelet Count 167, Mean Platelet Volume 11.4H, Neutrophils (%) (Auto) 70, Lymphocytes (%) (Auto) 22, Monocytes (%) (Auto) 7, Eosinophils (%) (Auto) 1, Basophils (%) (Auto) 0, Neutrophils # (Auto) 7.6, Lymphocytes # (Auto) 2.4, Monocytes # (Auto) 0.8, Eosinophils # (Auto) 0.1, Basophils # (Auto) 0.0 GUILLAUME NATARAJAN DO 05/28/19 0758: Note Note Verification and Attestation of Medical Student E/M Service A medical student performed and documented this service in my presence. I reviewed and verified all information documented by the medical student and made modifications to such information, when appropriate. I personally performed the physical exam and medical decision making. Guillaume Natarajan, May 28, 2019,07:57 GISELE HANCOCK,MED STUDENT May 28, 2019 07:26 GUILLAUME NATARAJAN DO May 28, 2019 07:58
[2019-05-28 08:10] VITALS: BP 114/55
[2019-05-28] MEDS: IBUPROFEN 600 MG (MOTRIN) TAB PO SCH (08:36)
[2019-05-28] MEDS: DOCUSATE SODIUM 100 MG (COLACE) CAP PO SCH (08:37)
--- NOTE | 2019-05-28 12:10 | NUR ---
KAYKAY SANTANA demonstrates understanding of discharge instructions and accurately returns instructions upon questioning. Copy of Post-Discharge Instructions and Medication Discharge Instructions given to patient. KAYKAY SANTANA is able to manage continuing needs after discharge. Patients belongings returned to patient. Skin dry and intact; no breakdown noted. Patient discharged from 3311-1 on 05-28-19 at 1210. KAYKAY SANTANA left floor via ambulation, accompanied by staff and s/o.
== END 2019-05-28 12:10 | disposition home or self-care (01) | DRG 807 ==
LOC: WSo 04:07 → LDRP 04:09 → WSo 04:43 → LDRP 11:00
PROVIDERS: ADMIT Obstetrics & Gynecology; ATTEND Obstetrics & Gynecology
PROC: 10E0XZZ Delivery of Products of Conception, External Approach (ICD-10-PCS; principal; 2019-05-27)
PROC: 0KQM0ZZ Repair Perineum Muscle, Open Approach (ICD-10-PCS; 2019-05-27)
PROC: 0UQMXZZ Repair Vulva, External Approach (ICD-10-PCS; 2019-05-27)
DX: O70.1 Second degree perineal laceration during delivery (principal); Z37.0 Single live birth; O90.89 Other complications of the puerperium, not elsewhere classified; I95.9 Hypotension, unspecified; Z3A.38 38 weeks gestation of pregnancy; Z79.1 Long term (current) use of non-steroidal anti-inflammatories (NSAID)
CPT/HCPCS: 36415; 85025; 86850; 86900; 86901; 99212

== ENCOUNTER → 2020-09-18 | Outpatient (CLI) | payer BC ==
[~2020-09-18] MED LIST changes: +BENZ78AE5 TP; +DCS100C PO
--- NOTE | 2020-09-18 13:09 | Diagnostic Imaging Report ---
INDICATION: patient, survey. TECHNIQUE: Multiple real-time grayscale images were obtained over the gravid uterus. COMPARISON: None during this . FINDINGS: A single live intrauterine fetus is seen measuring 20 weeks 5 days in size with heart rate of 142 bpm. Placenta is anterior with no evidence of previa. Distance from the tip of the placenta to the internal cervical os was 4.4 cm. Cervical length was 5.4 cm. The fetus is in transverse presentation. Maternal adnexa showed no free fluid. survey showed normal-appearing bladder and stomach and four-chamber heart view. Normal-appearing cord insertion and three-vessel cord were seen. Normal views of the spine were seen. The intracranial structures were not well visualized due to position. kidneys also could not be well seen. Biometrical measurements are as follows: Biparietal 4.98 cm, age 21 weeks 1 days. Head circumference 18.03 cm, age 20 weeks 4 days. Abdominal circumference 14.97 cm, age 20 weeks 2 days. Femur length 3.39 cm, age 20 weeks 5 days. Sonographic estimate age: 20 weeks 5 days. Sonographic estimated date of delivery: 01/31/2021. Estimated Weight: 354 gm (+/- 52 gm). LMP percentile: 85%. heart rate: 142 beats per minute. number: 1 of 1. IMPRESSION: Single live intrauterine fetus measuring 20 weeks 5 days in size. There was no detectable abnormality. survey was limited however and at the kidneys and intracranial structures could not be well seen. Suggest limited follow-up as clinically warranted. Dictated by: Dictated on workstation # [id number]
== END ==
LOC: RAD 12:00
PROVIDERS: ATTEND Obstetrics & Gynecology
DX: Z34.02 Encounter for supervision of normal first pregnancy, second trimester (principal); Z3A.20 20 weeks gestation of pregnancy
CPT/HCPCS: 76805

== ENCOUNTER 2021-01-23 23:49 | Outpatient (CLI) | payer BC ==
[~2021-01-23] VITALS: Ht 167.7 cm; Wt 86.0 kg
[~2021-01-23 23:49] MED LIST changes: -DCS100C PO; +DOCU-239 PO
[2021-01-24 00:04] VITALS: BP 115/65
[2021-01-24 00:15] LABS: BILIRUBIN,URINE NEGATIVE (NEGATIVE); CLARITY,URINE CLEAR; COLOR,URINE YELLOW; GLUCOSE, URINE (UA) NEGATIVE (NEGATIVE); KETONES,URINE 1+ (NEGATIVE); LEUKOCYTE ESTERASE ,URINE NEGATIVE (NEGATIVE); NITRITE,URINE NEGATIVE (NEGATIVE); PROTEIN,URINE NEGATIVE (NEGATIVE)
[2021-01-24 00:24] LABS: BACTERIA,URINE NEGATIVE /HPF; SQUAMOUS EPITHELIAL CELL,UR 0-2 /HPF
[2021-01-24] MEDS ORDERED: FERR-84 PO (04:57)
--- NOTE | 2021-01-24 08:29 | Physician Query-Final Dx ---
Clinic Account Progress/Dx Physician Query: Please give diagnosis Please include # weeks gestation Date of Service Jan 23, 2021 at 23:49 MAURILIO BOURNE Jan 24, 2021 08:29
[2021-01-25] MEDS ORDERED: DIBU30OI TOP (08:58)
[2021-01-25] MEDS ORDERED: IBUP-844 PO (08:58)
[2021-01-25] MEDS ORDERED: DOCU100C37 PO (08:58)
[2021-01-25] MEDS ORDERED: ACHD5005 PO (08:58)
[2021-01-25] MEDS ORDERED: BENZ78AE5 TP (08:58)
== END 2021-01-24 05:45 | disposition home or self-care (01) ==
LOC: WSo 23:49 → LDRP 23:53 → WSo 01-24 05:45
PROVIDERS: ATTEND Obstetrics & Gynecology
DX: O47.1 False labor at or after 37 completed weeks of gestation (principal); Z3A.37 37 weeks gestation of pregnancy
CPT/HCPCS: 81000

== ENCOUNTER 2021-01-24 09:00 | Inpatient (IN) | payer BC ==
[2021-01-24] VITALS (55 sets, daily range): BP systolic 85–127; BP diastolic 48–76
[~2021-01-24] VITALS: Ht 167.7 cm; Wt 85.9 kg
[~2021-01-24 09:00] MED LIST changes: +FERR-84 PO
[2021-01-24] MEDS ORDERED: MINERAL OIL CONCENTRATE 99.9% 15 ML UDC TOP PRN (10:00)
[2021-01-24 10:02] LABS: BASOPHILS % (AUTO) 0 % (0-10); EOSINOPHILS # (AUTO) 0.1 10^3/uL (0.0-0.3); EOSINOPHILS % (AUTO) 2 % (0-10); HEMATOCRIT 34 % (35-52); HEMOGLOBIN 11.6 g/dL (11.5-16.0); LYMPHOCYTES # (AUTO) 1.5 10^3/uL (1.0-4.0); LYMPHOCYTES % (AUTO) 25 % (12-44); MEAN CORPUSCULAR HEMOGLOBIN 30 pg (25-34); MEAN CORPUSCULAR HGB CONC 34 g/dL (32-36); MEAN CORPUSCULAR VOLUME 88 fL (80-99); MEAN PLATELET VOLUME 12.3 fL (9.0-12.2); MONOCYTES # (AUTO) 0.5 10^3/uL (0.0-1.0); MONOCYTES % (AUTO) 8 % (0-12); NEUTROPHILS # (AUTO) 3.8 10^3/uL (1.8-7.8); NEUTROPHILS % (AUTO) 64 % (42-75); PLATELET COUNT 157 10^3/uL (130-400); WHITE BLOOD COUNT 5.9 10^3/uL (4.3-11.0)
[2021-01-24] MEDS: D5 LR IV SOLUTION 1,000 ML IV SCH ×2 (10:15→18:50)
[2021-01-24] MEDS ORDERED: fentaNYL 2 mcg/ml BUPIVA 0.125 100 ML ONE (11:21)
[2021-01-24] MEDS ORDERED: BUPIVACAINE 0.25% 30 ML (SENSORCAINE) VIAL ONE (11:23)
[2021-01-24] MEDS ORDERED: fentaNYL INJ 100 MCG/2 ML AMP ONE (11:25)
[2021-01-24] MEDS ORDERED: fentaNYL 2 mcg/ml BUPIVA 0.125 100 ML IV SCH (12:00)
[2021-01-24] MEDS ORDERED: CATHETER FLUSH 10 ML SYR IV PRN (12:00)
[2021-01-24] MEDS ORDERED: NALOXONE 0.4 MG/ML 1 ML (NARCAN) VIAL IV PRN ×2 (12:00→18:45)
[2021-01-24] MEDS ORDERED: LACTATED RINGERS 1,000 ML IV ONE (12:00)
[2021-01-24] MEDS ORDERED: FLU QUADRIvalent (3YOA+) 60 mcg/0.5 ml 2021-22(AFLURIA) IM ONE (12:30)
[2021-01-24] MEDS ORDERED: CATHETER FLUSH 10 ML SYR IV SCH ×2 (14:00→22:00)
[2021-01-24] MEDS ORDERED: OXYTOCIN PRE-MIX DRIP 500 ML IV ONE (14:19)
[2021-01-24] MEDS ORDERED: OXYTOCIN PRE-MIX DRIP 500 ML IV SCH ×2 (14:30→18:45)
--- NOTE | 2021-01-24 16:00 | History & Physical-OB ---
OB - Chief Complaint & HPI Date/Time Date of Admission: Date of Admission: Jan 24, 2021 at 9:00 am Date seen by a Provider: Jan 24, 2021 Time Seen by a Provider: 08:00 Chief Complaint/History OB-Reason for Admission/Chief: Onset of Labor Hx : 3 Hx Para: 2 Expected Date of Delivery: Feb 07, 2021 Gestational Age in Weeks: 38 Gestational Age in Days: 0 Other reason for admission: Patient sent from office 6 cm dilated Admission Nurse Assessment Rev: Yes History of Labs O pos Antibody neg RI RPR NR HBsAg NR HIV NR GC neg GBS neg Allergies and Home Medications Allergies Coded Allergies: No Known Drug Allergies (Unverified , 01/30/16) Patient Home Medication List Home Medication List Reviewed: Yes Ferrous Sulfate (Iron) 325 Mg Tablet, 325 MG PO DAILY, (Reported) Entered as Reported by: CHRISTIANO BANKS on 01/24/21 5210 Last Action: Reviewed Vit No.124/Iron/FA ( Vitamin Tablet) 1 Each Tablet, 1 EACH PO DAILY, (Reported) Entered as Reported by: MYRON SUE on 08/10/172040 Last Action: Reviewed Discontinued Medications Benzocaine/Menthol (Dermoplast Pain Relieving Akins) 78 Gm Aerosol, 56 ML TP UD PRN for PAIN- SEE INSTRUCTIONS Discontinued Reason: No Longer Taking Prescribed by: MICHAEL NATARAJAN on 05/27/19 1136 Dibucaine (Dibucaine) 30 Gm Oint, 0 GM TOP UD PRN for PAIN- SEE INSTRUCTIONS Discontinued Reason: No Longer Taking Prescribed by: MICHAEL NATARAJAN on 05/27/19 1136 Docusate Sodium (Dok) 100 Mg Capsule, 100 MG PO BID PRN for CONSTIPATION-1ST L INE Discontinued Reason: No Longer Taking Prescribed by: MICHAEL NATARAJAN on 05/27/19 1136 Ibuprofen (Ibu) 600 Mg Tablet, 600 MG PO Q6HR Discontinued Reason: No Longer Taking Prescribed by: MICHAEL NATARAJAN on 05/27/19 1136 OB - History Hx of Present Care: Yes Ultrasounds: Normal mid trimester US Obstetrical Complications: None Medical Complications: None Delivery History Adverse Rxn to Tranfusion: No Patient Past Medical History n/a Social History/Family History 2nd Hand Smoke Exposure: No Immunizations Hepatitis A: Yes Hepatitis B: Yes OB - Admission Exam Physical Exam Vitals: Vital Signs 01/24/21 01/24/21 11:57 12:27 Temp 36.4 Pulse 75 Resp 20 B/P (MAP) 103/58 (73) Pulse Ox 100 O2 Delivery Room Air HEENT: NCAT Heart: Rhythm Normal Lungs: Clear Abdomen: Gravid Extremities: Normal Reflexes: Normal Cervical Dilatation: 6cm Effacement: 75% Station: -1 Membranes: Intact Heart Rate: 120's Accelerations: Accelerations Present Decelerations: No Decelerations Short Term Variability: Present Spreader Box Operator Variability: Average (6-25) Contractions on Admission: 6-10 Minutes Apart Intensity: Mild Labs Laboratory Tests Test 01/24/21 09:40 Range/Units White Blood Count 5.9 4.3-11.0 10^3/uL Red Blood Count 3.86 3.80-5.11 10^6/uL Hemoglobin 11.6 11.5-16.0 g/dL Hematocrit 34 L 35-52 % Mean Corpuscular Volume 88 80-99 fL Mean Corpuscular Hemoglobin 30 25-34 pg Mean Corpuscular Hemoglobin Concent 34 32-36 g/dL Red Cell Distribution Width 13.8 10.0-14.5 % Platelet Count 157 130-400 10^3/uL Mean Platelet Volume 12.3 H 9.0-12.2 fL Immature Granulocyte % (Auto) 0 % Neutrophils (%) (Auto) 64 42-75 % Lymphocytes (%) (Auto) 25 12-44 % Monocytes (%) (Auto) 8 0-12 % Eosinophils (%) (Auto) 2 0-10 % Basophils (%) (Auto) 0 0-10 % Neutrophils # (Auto) 3.8 1.8-7.8 10^3/uL Lymphocytes # (Auto) 1.5 1.0-4.0 10^3/uL Monocytes # (Auto) 0.5 0.0-1.0 10^3/uL Eosinophils # (Auto) 0.1 0.0-0.3 10^3/uL Basophils # (Auto) 0.0 0.0-0.1 10^3/uL Immature Granulocyte # (Auto) 0.0 0.0-0.1 10^3/uL OB - Assessment/Plan/Diagnosis Assessment Assessment: active labor Admission Dx 30 yo @ 38 weeks Advanced cervical dilatation Active labor Admission Status: Inpatient Order (span 2 midnights) Reason for Inpatient Admission: Active labor at 38 weeks Plan Plan: Expectant Management (AROM) MICHAEL NATARAJAN DO Jan 24, 2021 4:00 pm
[2021-01-24] MEDS ORDERED: CALCIUM CARBONATE 500 MG (TUMS) TAB.CHEW PO ONE (17:30)
--- NOTE | 2021-01-24 18:42 | OB Labor & Delivery Record ---
L&D History Date of Service Date of Service: Jan 24, 2021 History Expected Date of Delivery: Feb 07, 2021 Gestational Age in Weeks: 38 Hx : 3 Hx Para: 2 Complications Events: Routine care Operative Indications (Cesarea: N/A-Vaginal Delivery Intrapartal Events: None L&D Stage1 Stage One Onset of Labor - Date: Jan 24, 2021 Monitors and Tracing Monitor Mode: Internal Heart Rate: 110 Station: -2 Detention Variability: Average (6-10) Short Term Variability: Present Presentation: Vertex Vital Signs VS - Last 72 Hours, by Label 01/24/21 01/24/21 01/24/21 01/24/21 09:30 09:45 10:00 10:15 Temp 36.6 Pulse 77 78 78 78 Resp 20 20 20 20 B/P (MAP) 117/62 (80) 108/53 (71) 107/66 (80) 111/56 (74) Pulse Ox 99 100 99 99 O2 Delivery Room Air Room Air Room Air Room Air 01/24/21 01/24/21 01/24/21 01/24/21 10:30 10:45 11:00 11:06 Temp 36.6 Pulse 64 69 65 77 Resp 20 20 20 20 B/P (MAP) 108/65 (79) 100/57 (71) 107/65 (79) Pulse Ox 100 100 100 99 O2 Delivery Room Air Room Air Room Air Room Air 01/24/21 01/24/21 01/24/21 01/24/21 11:15 11:30 11:33 11:45 Pulse 71 75 67 75 Resp 20 20 20 20 B/P (MAP) 115/73 (87) 114/73 (87) 110/69 (83) 114/73 (87) Pulse Ox 100 100 100 100 O2 Delivery Room Air Room Air Room Air Room Air 01/24/21 01/24/21 01/24/21 01/24/21 11:45 11:48 11:51 11:54 Pulse 70 72 90 82 Resp 20 20 20 20 B/P (MAP) 109/66 (80) 109/65 (80) 101/57 (72) 96/48 (64) Pulse Ox 100 100 100 100 O2 Delivery Room Air Room Air Room Air Room Air 01/24/21 01/24/21 01/24/21 01/24/21 11:57 12:00 12:03 12:06 Temp 36.4 Pulse 82 85 77 96 Resp 20 20 20 20 B/P (MAP) 99/58 (72) 85/49 (61) 101/58 (72) 107/59 (75) Pulse Ox 100 100 100 100 O2 Delivery Room Air Room Air Room Air Room Air 01/24/21 01/24/21 01/24/21 01/24/21 12:09 12:12 12:15 12:18 Pulse 81 72 91 80 Resp 20 20 20 20 B/P (MAP) 100/57 (71) 107/61 (76) 105/61 (76) 106/56 (73) Pulse Ox 100 100 100 100 O2 Delivery Room Air Room Air Room Air Room Air 01/24/21 01/24/21 01/24/21 01/24/21 12:21 12:24 12:27 12:30 Pulse 91 83 75 79 Resp 20 20 20 20 B/P (MAP) 106/55 (72) 109/57 (74) 103/58 (73) 99/54 (69) Pulse Ox 100 100 100 100 O2 Delivery Room Air Room Air Room Air Room Air 01/24/21 01/24/21 01/24/21 01/24/21 12:45 13:00 13:15 13:30 Temp 36.7 Pulse 73 77 73 70 Resp 20 20 20 20 B/P (MAP) 102/55 (71) 97/55 (69) 103/55 (71) 102/57 (72) Pulse Ox 100 100 100 100 O2 Delivery Room Air Room Air Room Air Room Air 01/24/21 01/24/21 01/24/21 01/24/21 13:45 14:00 14:15 14:30 Pulse 67 74 71 80 Resp 20 20 20 20 B/P (MAP) 106/54 (71) 91/51 (64) 99/55 (70) 101/56 (71) Pulse Ox 100 100 100 100 O2 Delivery Room Air Room Air Room Air Room Air 01/24/21 01/24/21 01/24/21 01/24/21 14:45 15:00 15:15 15:30 Pulse 69 69 66 81 Resp 20 20 20 20 B/P (MAP) 99/54 (69) 117/57 (77) 102/54 (70) 91/56 (68) Pulse Ox 100 100 100 100 O2 Delivery Room Air Room Air Room Air Room Air 01/24/21 01/24/21 01/24/21 01/24/21 15:45 16:00 16:15 16:30 Pulse 63 68 68 65 Resp 20 20 20 20 B/P (MAP) 96/54 (68) 107/63 (78) 112/53 (72) 106/55 (72) Pulse Ox 100 100 100 98 O2 Delivery Room Air Room Air Room Air Room Air 01/24/21 01/24/21 01/24/21 01/24/21 16:45 17:00 17:15 17:30 Temp 36.6 Pulse 78 78 42 67 Resp 20 20 20 20 B/P (MAP) 103/58 (73) 103/58 (73) 114/56 (75) Pulse Ox 100 100 100 100 O2 Delivery Room Air Room Air Room Air Room Air 01/24/21 01/24/21 01/24/21 17:45 18:00 18:15 Pulse 78 78 78 Resp 20 20 20 B/P (MAP) 127/76 (93) 121/57 (78) 102/60 (74) Pulse Ox 100 O2 Delivery Room Air Room Air Room Air Rupture of Membranes Spontaneous Ruture of Membrane: No Amniotic Membrane Rupture Time: 1204 Amniotic Membrane Fluid Desc.: Clear Vaginal Bleeding Description: Normal Show Induction/Anesthesia Epidural Cath Placement - Time: 1136 Progress/Notes Patient admitted at 6 cm, epidural received and arom performed shortly after. She was started on low dose pitocin augmentation and progressed to complete and+ 2 station. L&D Stage2 Stage Two Stage II Date: Jan 24, 2021 Monitors and Tracing Monitor Mode: Internal Heart Rate: 110 Monitor Decelerations: Variable Tower Hoist Operator Variability: Average (6-10) Short Term Variability: Present Position: Right Occiput Anterior Presentation: Vertex Cord Descript/Complications Cord Vessel Description: 3 Vessels Delivery Type Infant Delivery Method: Spontaneous Vaginal Anterior Shoulder: Left Episiotomy/Perineal Laceration Laceraction(s)/Extensions: Yes Episiotomy Description: Perineal Extension/lac (1st degree perineal and right labial laceration repaired using 3-0 rapide vicyrl suture in usual fashion), 1st degree Condition of Delivery 1 minute Comment: 9 5 minute Comment: 9 Notes Live female weight 7lbs 13 oz Condition of Condition of : Living Exam: No Observed Abnormalities Resuscitation Resuscitation: N/A - Spontaneous Resp L&D Stage3 Stage Three Stage III Date: Jan 24, 2021 Pictocin Pitocin Administration mu/min: 4 Pitocin ml/hr: 4 Pitocin Administration Comment: 30 mu wide open at delivery of placenta Placenta Delivery Placenta Delivery: Spontaneous Delivery Summary Summary Estimated blood loss (mL): 300 Attending at delivery: Michael Natarajan DO Condition of Delivery Examined: Cervix Examined, Uterus Explored Post Hemorrhage: No Condition of Mother stable Condition of Infant (s) stable MICHAEL NATARAJAN DO Jan 24, 2021 18:42
[2021-01-24] MEDS ORDERED: MEASLES,MUMPS,RUBELLA 1 EA INJ SQ ONE (18:45)
[2021-01-24] MEDS ORDERED: TETANUS,DIPTH,PERTUSS P/F (BOOSTRIX) 0.5 ML VIAL IM ONE (18:45)
[2021-01-24] MEDS ORDERED: DIBUCAINE 1% OINTMENT 30 GM TUBE TOP PRN (18:45)
[2021-01-24] MEDS ORDERED: WITCH HAZEL(TUCKS) 40 EA JAR TOP PRN (18:45)
[2021-01-24] MEDS ORDERED: BENZOCAINE/MENTHOL (DERMOPLAST) 56 ML CAN TP PRN (18:45)
[2021-01-24] MEDS ORDERED: HYDROcodone/APAP 5 MG/325 MG (LORTAB) TAB PO PRN (18:45)
[2021-01-24] MEDS ORDERED: IBUPROFEN 600 MG (MOTRIN) TAB PO ONE (19:56)
[2021-01-24] MEDS: IBUPROFEN 600 MG (MOTRIN) TAB PO SCH (20:15)
[2021-01-24] MEDS: DOCUSATE SODIUM 100 MG (COLACE) CAP PO SCH (20:15)
[2021-01-25 03:50] VITALS: BP 94/52
[2021-01-25] MEDS: IBUPROFEN 600 MG (MOTRIN) TAB PO SCH ×3 (03:51→16:05)
[2021-01-25 05:37] LABS: BASOPHILS % (AUTO) 0 % (0-10); EOSINOPHILS # (AUTO) 0.2 10^3/uL (0.0-0.3); EOSINOPHILS % (AUTO) 2 % (0-10); HEMATOCRIT 33 % (35-52); HEMOGLOBIN 11.4 g/dL (11.5-16.0); LYMPHOCYTES # (AUTO) 1.9 10^3/uL (1.0-4.0); LYMPHOCYTES % (AUTO) 21 % (12-44); MEAN CORPUSCULAR HEMOGLOBIN 31 pg (25-34); MEAN CORPUSCULAR HGB CONC 35 g/dL (32-36); MEAN CORPUSCULAR VOLUME 88 fL (80-99); MEAN PLATELET VOLUME 12.5 fL (9.0-12.2); MONOCYTES # (AUTO) 0.6 10^3/uL (0.0-1.0); MONOCYTES % (AUTO) 7 % (0-12); NEUTROPHILS # (AUTO) 6.3 10^3/uL (1.8-7.8); NEUTROPHILS % (AUTO) 70 % (42-75); PLATELET COUNT 157 10^3/uL (130-400)
[2021-01-25] MEDS ORDERED: PRENATAL VITAMIN 1 EA TAB PO SCH (07:00)
[2021-01-25 08:26] VITALS: BP 110/58
[2021-01-25] MEDS: DOCUSATE SODIUM 100 MG (COLACE) CAP PO SCH (08:27)
--- NOTE | 2021-01-25 08:56 | Postpartum Progress Note ---
Note Note Day # 1 Subjective: Patient is without complaints. Ambulating, voiding. Tolerating a regular diet without nausea or vomiting. Normal lochia. Pain is well controlled with oral pain medications. Objective: Physical Exam: General - Alert and oriented, no apparent distress Abdomen - Soft, appropriately tender to palpation, non-distended, fundus firm at umbilicus Extremities - no edema, negative Barb's bilaterally Assessment: PPD 1 NVD Acute blood loss anemia Plan: Routine care. Encourage breast feeding. Encourage ambulation. Ferrous sulfate supplementation. Plan for discharge today pending infant release Vitals - Labs Vital Signs - I&O Vital Signs Date Time Temp Pulse Resp B/P (MAP) Pulse Ox O2 Delivery O2 Flow Rate FiO2 01/25/21 08:26 36.9 81 18 110/58 (75) 99 Room Air 01/25/21 03:50 36.7 76 20 94/52 (66) 98 Room Air 01/24/21 23:30 37.0 82 20 90/54 (66) 86 Room Air 01/24/21 19:39 80 20 120/67 (84) Room Air 01/24/21 19:24 66 20 111/63 (79) Room Air 01/24/21 19:10 71 20 113/75 (88) Room Air 01/24/21 18:39 73 20 114/64 (81) Room Air 01/24/21 18:30 67 20 111/65 (80) Room Air 01/24/21 18:15 78 20 102/60 (74) Room Air 01/24/21 18:00 78 20 121/57 (78) Room Air 01/24/21 17:45 78 20 127/76 (93) 100 Room Air 01/24/21 17:30 67 20 114/56 (75) 100 Room Air 01/24/21 17:15 36.6 42 20 100 Room Air 01/24/21 17:00 78 20 103/58 (73) 100 Room Air 01/24/21 16:45 78 20 103/58 (73) 100 Room Air 01/24/21 16:30 65 20 106/55 (72) 98 Room Air 01/24/21 16:15 68 20 112/53 (72) 100 Room Air 01/24/21 16:00 68 20 107/63 (78) 100 Room Air 01/24/21 15:45 63 20 96/54 (68) 100 Room Air 01/24/21 15:30 81 20 91/56 (68) 100 Room Air 01/24/21 15:15 66 20 102/54 (70) 100 Room Air 01/24/21 15:00 69 20 117/57 (77) 100 Room Air 01/24/21 14:45 69 20 99/54 (69) 100 Room Air 01/24/21 14:30 80 20 101/56 (71) 100 Room Air 01/24/21 14:15 71 20 99/55 (70) 100 Room Air 01/24/21 14:00 74 20 91/51 (64) 100 Room Air 01/24/21 13:45 67 20 106/54 (71) 100 Room Air 01/24/21 13:30 36.7 70 20 102/57 (72) 100 Room Air 01/24/21 13:15 73 20 103/55 (71) 100 Room Air 01/24/21 13:00 77 20 97/55 (69) 100 Room Air 01/24/21 12:45 73 20 102/55 (71) 100 Room Air 01/24/21 12:30 79 20 99/54 (69) 100 Room Air 01/24/21 12:27 75 20 103/58 (73) 100 Room Air 01/24/21 12:24 83 20 109/57 (74) 100 Room Air 01/24/21 12:21 91 20 106/55 (72) 100 Room Air 01/24/21 12:18 80 20 106/56 (73) 100 Room Air 01/24/21 12:15 91 20 105/61 (76) 100 Room Air 01/24/21 12:12 72 20 107/61 (76) 100 Room Air 01/24/21 12:09 81 20 100/57 (71) 100 Room Air 01/24/21 12:06 96 20 107/59 (75) 100 Room Air 01/24/21 12:03 77 20 101/58 (72) 100 Room Air 01/24/21 12:00 85 20 85/49 (61) 100 Room Air 01/24/21 11:57 36.4 82 20 99/58 (72) 100 Room Air 01/24/21 11:54 82 20 96/48 (64) 100 Room Air 01/24/21 11:51 90 20 101/57 (72) 100 Room Air 01/24/21 11:48 72 20 109/65 (80) 100 Room Air 01/24/21 11:45 70 20 109/66 (80) 100 Room Air 01/24/21 11:45 75 20 114/73 (87) 100 Room Air 01/24/21 11:33 67 20 110/69 (83) 100 Room Air 01/24/21 11:30 75 20 114/73 (87) 100 Room Air 01/24/21 11:15 71 20 115/73 (87) 100 Room Air 01/24/21 11:06 36.6 77 20 99 Room Air 01/24/21 11:00 65 20 107/65 (79) 100 Room Air 01/24/21 10:45 69 20 100/57 (71) 100 Room Air 01/24/21 10:30 64 20 108/65 (79) 100 Room Air 01/24/21 10:15 78 20 111/56 (74) 99 Room Air 01/24/21 10:00 78 20 107/66 (80) 99 Room Air 01/24/21 09:45 78 20 108/53 (71) 100 Room Air 01/24/21 09:30 36.6 77 20 117/62 (80) 99 Room Air I & O 01/25/21 07:00 Intake Total 2000 ml Balance 2000 ml Labs Laboratory Tests 01/24/21 09:40: White Blood Count 5.9, Red Blood Count 3.86, Hemoglobin 11.6, Hematocrit 34L, Mean Corpuscular Volume 88, Mean Corpuscular Hemoglobin 30, Mean Corpuscular Hemoglobin Concent 34, Red Cell Distribution Width 13.8, Platelet Count 157, Mean Platelet Volume 12.3H, Immature Granulocyte % (Auto) 0, Neutrophils (%) (Auto) 64, Lymphocytes (%) (Auto) 25, Monocytes (%) (Auto) 8, Eosinophils (%) (Auto) 2, Basophils (%) (Auto) 0, Neutrophils # (Auto) 3.8, Lymphocytes # (Auto) 1.5, Monocytes # (Auto) 0.5, Eosinophils # (Auto) 0.1, Basophils # (Auto) 0.0, Immature Granulocyte # (Auto) 0.0 01/25/21 05:12: White Blood Count 9.0, Red Blood Count 3.74L, Hemoglobin 11.4L, Hematocrit 33L, Mean Corpuscular Volume 88, Mean Corpuscular Hemoglobin 31, Mean Corpuscular Hemoglobin Concent 35, Red Cell Distribution Width 13.8, Platelet Count 157, Mean Platelet Volume 12.5H, Immature Granulocyte % (Auto) 0, Neutrophils (%) (Auto) 70, Lymphocytes (%) (Auto) 21, Monocytes (%) (Auto) 7, Eosinophils (%) (Auto) 2, Basophils (%) (Auto) 0, Neutrophils # (Auto) 6.3, Lymphocytes # (Auto) 1.9, Monocytes # (Auto) 0.6, Eosinophils # (Auto) 0.2, Basophils # (Auto) 0.0, Immature Granulocyte # (Auto) 0.0 MICHAEL NATARAJAN DO Jan 25, 2021 08:56
--- NOTE | 2021-01-25 08:57 | Discharge Inst-Women's Service ---
Discharge Inst-Women's Serv Depart Medication/Instructions New, Converted or Re-Newed RX: RX on Chart Final Diagnosis PPD 1 NVD Problems Reviewed?: Yes Consults/Follow Up Additional Follow Up: Yes Orders/Referrals Dr. Natarajan in 6 weeks Activity Activity: Activity as Tolerated Driving Instructions: No Driving for 1 Week NO SMOKING: NO SMOKING Nothing Inside Vagina: No Douching, No [place], No Tampons Diet Discharge Diet: No Restrictions Symptoms to Report to : Bleeding Excessive, Pain Increased, Fever Over 101 Degrees F, Vaginal Bleeding Increase, Questions/Concerns For Any Problems or Questions: Contact Your Physician MICHAEL NATARAJAN DO Jan 25, 2021 08:57
[2021-01-25] MEDS ORDERED: IBUP-844 PO (08:58)
[2021-01-25] MEDS ORDERED: DIBU30OI TOP (08:58)
[2021-01-25] MEDS ORDERED: BENZ78AE5 TP (08:58)
[2021-01-25] MEDS ORDERED: ACHD5005 PO (08:58)
[2021-01-25] MEDS ORDERED: DOCU100C37 PO (08:58)
[2021-01-25] MEDS ORDERED: FERROUS SULF 325 MG (IRON) TAB PO SCH (09:00)
--- NOTE | 2021-01-25 10:17 | Anesthesia-Regional Post-Op ---
Regional Patient Condition Mental Status: Alert, Oriented x3 Circulation: Same as Pre-Op Headache: Absent Sensation: Full Recovery Motor Block: Absent Post Op Complications Complications None Follow Up Care/Instructions Patient Instructions None needed. Anesthesia/Patient Condition Patient is doing well, no complaints, stable vital signs, no apparent adverse anesthesia problems. No complications reported per nursing. NATACHA LEE CRNA Jan 25, 2021 10:17
[2021-01-25 11:35] VITALS: BP 118/61
[2021-01-25 16:07] VITALS: BP 107/57
== END 2021-01-25 20:50 | disposition home or self-care (01) | DRG 806 ==
LOC: LDRP 09:00
PROVIDERS: ADMIT Obstetrics & Gynecology; ATTEND Obstetrics & Gynecology
PROC: 10E0XZZ Delivery of Products of Conception, External Approach (ICD-10-PCS; principal; 2021-01-24)
PROC: 0HQ9XZZ Repair Perineum Skin, External Approach (ICD-10-PCS; 2021-01-24)
PROC: 0UQMXZZ Repair Vulva, External Approach (ICD-10-PCS; 2021-01-24)
DX: O70.0 First degree perineal laceration during delivery (principal); D62 Acute posthemorrhagic anemia; Z37.0 Single live birth; Z3A.38 38 weeks gestation of pregnancy; O90.81 Anemia of the puerperium
CPT/HCPCS: 36415; 85025; 86850; 86900; 86901

== ENCOUNTER → 2022-04-26 | Outpatient (CLI) | payer BC ==
--- NOTE | 2022-04-26 17:45 | Diagnostic Imaging Report ---
INDICATION: Anatomy scan. Supervision of normal . TECHNIQUE: Multiple real-time grayscale images were obtained over the gravid uterus. COMPARISON: None FINDINGS: A single live intrauterine gestation is visualized in variable position. heart tones measure 136 BPM. The placenta is anterior and not low lying. The NAMAN is normal and measures 12.2 cm. The cervix is closed and measures 5.2 cm in length. Kidneys, bladder, stomach, brain, four-chamber heart, three-vessel cord, spine, and cord insertion are visualized and have a normal appearance. Views of the adnexa demonstrate no evidence of mass or free fluid. Biometrical measurements are as follows: Biparietal 4.60 cm, age 20 weeks 0 days. Head circumference 17.96 cm, age 20 weeks 3 days. Abdominal circumference 17.28 cm, age 22 weeks 2 days. Femur length 3.31 cm, age 20 weeks 3 days. Sonographic estimate age: 20 weeks 6 days. Sonographic estimated date of delivery: 09/07/2022. Estimated Weight: 408 gm (+/- 60 gm). LMP percentile: 91%. heart rate: 136 beats per minute. number: 1 of 1. IMPRESSION: 1. Single live intrauterine gestation measuring 20 weeks 6 days with an estimated due date of 09/07/2022. These are within range with the clinical dates. 2. Unremarkable anatomy scan without abnormality. Dictated by: Dictated on workstation # [id number]
== END ==
LOC: RAD 11:33
PROVIDERS: ATTEND Nurse Practitioner Women's Health
DX: Z34.02 Encounter for supervision of normal first pregnancy, second trimester (principal); Z3A.20 20 weeks gestation of pregnancy
CPT/HCPCS: 76805

== ENCOUNTER 2022-09-05 20:19 | Inpatient (IN) | payer BC ==
[2022-09-05] VITALS (25 sets, daily range): BP systolic 105–147; BP diastolic 57–78
[~2022-09-05] VITALS: Ht 169 cm; Wt 93.2 kg
[2022-09-05] MEDS ORDERED: D5 LR IV SOLUTION 1,000 ML IV SCH (21:00)
[2022-09-05] MEDS ORDERED: MINERAL OIL 30 ML UDC TOP PRN (21:00)
[2022-09-05] MEDS ORDERED: D5 LR IV SOLUTION 1,000 ML IV ONE (21:11)
[2022-09-05] MEDS ORDERED: LACTATED RINGERS 1,000 ML IV ONE (21:15)
[2022-09-05 21:19] LABS: BILIRUBIN,URINE NEGATIVE (NEGATIVE); CLARITY,URINE SL CLOUDY; COLOR,URINE YELLOW; GLUCOSE, URINE (UA) NEGATIVE (NEGATIVE); KETONES,URINE 1+ (NEGATIVE); LEUKOCYTE ESTERASE ,URINE NEGATIVE (NEGATIVE); NITRITE,URINE NEGATIVE (NEGATIVE); PROTEIN,URINE NEGATIVE (NEGATIVE)
[2022-09-05 21:20] LABS: BASOPHILS % (AUTO) 0 % (0-10); EOSINOPHILS # (AUTO) 0.1 10^3/uL (0.0-0.3); EOSINOPHILS % (AUTO) 1 % (0-10); HEMATOCRIT 33 % (35-52); HEMOGLOBIN 10.9 g/dL (11.5-16.0); LYMPHOCYTES # (AUTO) 2.3 10^3/uL (1.0-4.0); LYMPHOCYTES % (AUTO) 24 % (12-44); MEAN CORPUSCULAR HEMOGLOBIN 28 pg (25-34); MEAN CORPUSCULAR HGB CONC 33 g/dL (32-36); MEAN CORPUSCULAR VOLUME 84 fL (80-99); MEAN PLATELET VOLUME 11.9 fL (9.0-12.2); MONOCYTES # (AUTO) 0.6 10^3/uL (0.0-1.0); MONOCYTES % (AUTO) 6 % (0-12); NEUTROPHILS # (AUTO) 6.4 10^3/uL (1.8-7.8); NEUTROPHILS % (AUTO) 68 % (42-75); PLATELET COUNT 172 10^3/uL (130-400); WHITE BLOOD COUNT 9.4 10^3/uL (4.3-11.0)
[2022-09-05] MEDS ORDERED: fentaNYL 2 mcg/ml BUPIVA 0.125 100 ML ONE (21:30)
[2022-09-05 21:37] LABS: BACTERIA,URINE MODERATE /HPF; SQUAMOUS EPITHELIAL CELL,UR >50 /HPF; WBC,URINE 0-2 /HPF
[2022-09-05] MEDS ORDERED: METOCLOPRAMIDE INJ 10 MG/2 ML (REGLAN) IV PRN (22:00)
[2022-09-05] MEDS ORDERED: diphenhydrAMINE 50 MG/ML INJ (BENADRYL) IV PRN (22:00)
[2022-09-05] MEDS ORDERED: fentaNYL 2 mcg/ml BUPIVA 0.125 100 ML EPI SCH (22:00)
[2022-09-05] MEDS ORDERED: LACTATED RINGERS 1,000 ML IV SCH (22:00)
[2022-09-05] MEDS ORDERED: ONDANSETRON 4 MG/2 ML (SDV) Z0FRAN IV PRN (22:00)
[2022-09-05] MEDS ORDERED: NALOXONE 0.4 MG/ML 1 ML (NARCAN) VIAL IV PRN ×3 (22:00→23:15)
[2022-09-05] MEDS ORDERED: CATHETER FLUSH 10 ML SYR IV SCH (22:00)
[2022-09-05] MEDS ORDERED: LIDOCAINE 1% INJ 10 ML VIAL ONE (22:04)
[2022-09-05] MEDS ORDERED: OXYTOCIN PRE-MIX DRIP 500 ML IV ONE ×2 (22:05→23:17)
--- NOTE | 2022-09-05 23:11 | History & Physical-OB ---
OB - Chief Complaint & HPI Date/Time Date of Admission: Date of Admission: Sep 05, 2022 at 20:42 Date seen by a Provider: Sep 05, 2022 Time Seen by a Provider: 10:15 Chief Complaint/History OB-Reason for Admission/Chief: Onset of Labor Hx : 4 Hx Para: 3 Expected Date of Delivery: Sep 11, 2022 Gestational Age in Weeks: 39 Gestational Age in Days: 1 Admission Nurse Assessment Rev: Yes Allergies and Home Medications Allergies Coded Allergies: No Known Drug Allergies (Unverified , 01/30/16) Patient Home Medication List Home Medication List Reviewed: Yes Benzocaine/Menthol (Dermoplast Pain Relieving [place]) 78 Gm Aerosol, 56 EA TP UD PRN for PAIN- SEE INSTRUCTIONS Prescribed by: MICHAEL NATARAJAN on 01/25/21857 Dibucaine (Dibucaine) 30 Gm Oint, 0 GM TOP UD PRN for PAIN- SEE INSTRUCTIONS Prescribed by: MICHAEL NATARAJAN on 01/25/21857 Docusate Sodium (Docusate Sodium) 100 Mg Capsule, 100 MG PO BID PRN for CONSTIPATION-1ST LINE Prescribed by: MICHAEL NATARAJAN on 01/25/21857 Ferrous Sulfate (Iron) 325 Mg Tablet, 325 MG PO DAILY, (Reported) Entered as Reported by: CHRISTIANO BANKS on 01/24/21 0457 Hydrocodone Bit/Acetaminophen (HYDROcodone/APAP 5 MG/325 MG TAB) 1 Tab Tab, 1 EA PO Q4H PRN for PAIN-MODERATE (5-7) Prescribed by: MICHAEL NATARAJAN on 01/25/21857 Ibuprofen (Ibu) 600 Mg Tablet, 600 MG PO Q6HR Prescribed by: MICHAEL NATARAJAN on 01/25/21 08 Vit No.124/Iron/FA ( Vitamin Tablet) 1 Each Tablet, 1 EACH PO DAILY, (Reported) Entered as Reported by: MYRON SUE on 08/10/172040 OB - History Hx of Present Care: Yes Ultrasounds: Normal mid trimester US Obstetrical Complications: None Medical Complications: None Delivery History Adverse Rxn to Tranfusion: No Patient Past Medical History n/a Social History/Family History 2nd Hand Smoke Exposure: No Immunizations Influenza Vaccine Up-to-Date: No; Not Current First/Initial COVID19 Vaccine: AUGUST 2020 Hepatitis A: Yes Hepatitis B: Yes OB - Admission Exam Physical Exam Vitals: Vital Signs 09/05/22 20:45 Temp 37.2 Pulse 72 Resp 20 Pulse Ox 100 O2 Delivery Room Air HEENT: NCAT Heart: Rhythm Normal Lungs: Clear Abdomen: Gravid Extremities: Normal Reflexes: Normal Cervical Dilatation: 8cm Effacement: 75% Station: -1 Membranes: Intact Heart Rate: 130's Accelerations: Accelerations Present Decelerations: No Decelerations Short Term Variability: Present Snf Variability: Average (6-25) Contractions on Admission: < 5 Minutes Apart Intensity: Firm Labs Laboratory Tests Test 09/05/22 20:30 09/05/22 21:08 Range/Units Urine Color YELLOW Urine Clarity SL CLOUDY Urine pH 6.0 5-9 Urine Specific [place] >=1.030 1.016-1.022 Urine Protein NEGATIVE NEGATIVE Urine Glucose (UA) NEGATIVE NEGATIVE Urine Ketones 1+ H NEGATIVE Urine Nitrite NEGATIVE NEGATIVE Urine Bilirubin NEGATIVE NEGATIVE Urine Urobilinogen 1.0 < = 1.0 MG/DL Urine Leukocyte Esterase NEGATIVE NEGATIVE Urine RBC (Auto) NEGATIVE NEGATIVE Urine RBC 2-5 H /HPF Urine WBC 0-2 /HPF Urine Squamous Epithelial Cells >50 H /HPF Urine Crystals NONE /LPF Urine Bacteria MODERATE H /HPF Urine Casts NONE /LPF Urine Mucus SMALL H /LPF Urine Culture Indicated NO White Blood Count 9.4 4.3-11.0 10^3/uL Red Blood Count 3.91 3.80-5.11 10^6/uL Hemoglobin 10.9 L 11.5-16.0 g/dL Hematocrit 33 L 35-52 % Mean Corpuscular Volume 84 80-99 fL Mean Corpuscular Hemoglobin 28 25-34 pg Mean Corpuscular Hemoglobin Concent 33 32-36 g/dL Red Cell Distribution Width 14.2 10.0-14.5 % Platelet Count 172 130-400 10^3/uL Mean Platelet Volume 11.9 9.0-12.2 fL Immature Granulocyte % (Auto) 0 % Neutrophils (%) (Auto) 68 42-75 % Lymphocytes (%) (Auto) 24 12-44 % Monocytes (%) (Auto) 6 0-12 % Eosinophils (%) (Auto) 1 0-10 % Basophils (%) (Auto) 0 0-10 % Neutrophils # (Auto) 6.4 1.8-7.8 10^3/uL Lymphocytes # (Auto) 2.3 1.0-4.0 10^3/uL Monocytes # (Auto) 0.6 0.0-1.0 10^3/uL Eosinophils # (Auto) 0.1 0.0-0.3 10^3/uL Basophils # (Auto) 0.0 0.0-0.1 10^3/uL Immature Granulocyte # (Auto) 0.0 0.0-0.1 10^3/uL Syphilis Total Antibody Negative Negative OB - Assessment/Plan/Diagnosis Assessment Assessment: active labor Admission Dx 32 yo @ 39 weeks Active labor GBS neg Admission Status: Inpatient Order (span 2 midnights) Reason for Inpatient Admission: active labor at 39 weeks Plan Plan: Expectant Management MICHAEL NATARAJAN DO Sep 05, 2022 23:11
[2022-09-05] MEDS: OXYTOCIN PRE-MIX DRIP 500 ML IV SCH ×2 (23:14→23:33)
[2022-09-05] MEDS ORDERED: WITCH HAZEL(TUCKS) 40 EA JAR TOP PRN ×2 (23:15→23:49)
[2022-09-05] MEDS ORDERED: MEASLES,MUMPS,RUBELLA 1 EA INJ SQ ONE (23:15)
[2022-09-05] MEDS ORDERED: HYDROcodone/APAP 5 MG/325 MG (LORTAB) TAB PO PRN (23:15)
[2022-09-05] MEDS ORDERED: BENZOCAINE/MENTHOL (DERMOPLAST) 56 ML CAN TP PRN ×2 (23:15→23:48)
[2022-09-05] MEDS ORDERED: TETANUS,DIPTH,PERTUSS P/F (BOOSTRIX) 0.5 ML VIAL IM ONE (23:15)
[2022-09-05] MEDS ORDERED: DIBUCAINE 1% OINTMENT 28 GM TUBE TOP PRN (23:15)
--- NOTE | 2022-09-05 23:15 | OB Labor & Delivery Record ---
L&D History Date of Service Date of Service: Sep 05, 2022 History Expected Date of Delivery: Sep 11, 2022 Gestational Age in Weeks: 39 Hx : 4 Hx Para: 3 Complications Events: Routine care Operative Indications (Cesarea: N/A-Vaginal Delivery Intrapartal Events: None L&D Stage1 Stage One Onset of Labor - Date: Sep 05, 2022 Monitors and Tracing Monitor Mode: External Monitor Accelerations: Uniform Monitor Decelerations: Variable Fagoting Machine Operator Variability: Average (6-10) Short Term Variability: Present Presentation: Vertex Vital Signs VS - Last 72 Hours, by Label 09/05/22 20:45 Temp 37.2 Pulse 72 Resp 20 Pulse Ox 100 O2 Delivery Room Air Rupture of Membranes Spontaneous Ruture of Membrane: No Amniotic Membrane Rupture Time: 10:35 Amniotic Membrane Fluid Desc.: Clear Vaginal Bleeding Description: Normal Show Progress/Notes Patient admitted at 6 cm in active labor. Epidural placed shortly after admission and patient progressed to complete where AROM was performed. Followed by a large deceleration, with rapid recovery to baseline, and then active maternal pushing L&D Stage2 Stage Two Stage II Date: Sep 05, 2022 Monitors and Tracing Monitor Mode: External Monitor Accelerations: None Monitor Decelerations: Variable Chcf Variability: Average (6-10) Short Term Variability: Present Position: Right Occiput Anterior Presentation: Vertex Cord Descript/Complications Cord Vessel Description: 3 Vessels Complications nuchal cord reduced x 1 Delivery Type Infant Delivery Method: Spontaneous Vaginal Anterior Shoulder: Left, Right Episiotomy/Perineal Laceration Laceraction(s)/Extensions: Yes Episiotomy Description: Perineal Extension/lac, 2nd degree Degree (describe repair) 2nd degree perineal laceration repaired using 3-0 rapide in usual fashion Condition of Infant Delivery Notes Live male weight and apgars pending Condition of Condition of Infant: Living Exam: No Observed Abnormalities Resuscitation Resuscitation: N/A - Spontaneous Resp L&D Stage3 Stage Three Stage III Date: Sep 05, 2022 Pictocin Pitocin Administration Comment: 30 mu wide open after delivery of placenta Placenta Delivery Placenta Delivery: Spontaneous Delivery Summary Summary Estimated blood loss (mL): 350 Attending at delivery: Michael Natarajan DO Condition of Delivery Examined: Cervix Examined, Uterus Explored Post Hemorrhage: No Condition of Mother stable Condition of (s) stable MICHAEL NATARAJAN DO Sep 05, 2022 23:14
[2022-09-05] MEDS ORDERED: WITCH HAZEL(TUCKS) 40 EA JAR ONE (23:17)
[2022-09-05] MEDS ORDERED: IBUPROFEN 600 MG (MOTRIN) TAB PO ONE (23:17)
[2022-09-05] MEDS ORDERED: BENZOCAINE/MENTHOL (DERMOPLAST) 56 ML CAN TP ONE (23:17)
[2022-09-05] MEDS: IBUPROFEN 600 MG (MOTRIN) TAB PO SCH (23:18)
[2022-09-06] VITALS (8 sets, daily range): BP systolic 99–111; BP diastolic 55–63
[2022-09-06] MEDS: IBUPROFEN 600 MG (MOTRIN) TAB PO SCH ×4 (05:12→22:59)
[2022-09-06 05:51] LABS: BASOPHILS % (AUTO) 0 % (0-10); EOSINOPHILS # (AUTO) 0.1 10^3/uL (0.0-0.3); EOSINOPHILS % (AUTO) 1 % (0-10); HEMATOCRIT 30 % (35-52); HEMOGLOBIN 10.2 g/dL (11.5-16.0); LYMPHOCYTES # (AUTO) 1.7 10^3/uL (1.0-4.0); LYMPHOCYTES % (AUTO) 18 % (12-44); MEAN CORPUSCULAR HEMOGLOBIN 28 pg (25-34); MEAN CORPUSCULAR HGB CONC 34 g/dL (32-36); MEAN CORPUSCULAR VOLUME 83 fL (80-99); MEAN PLATELET VOLUME 12.3 fL (9.0-12.2); MONOCYTES # (AUTO) 0.7 10^3/uL (0.0-1.0); MONOCYTES % (AUTO) 7 % (0-12); NEUTROPHILS % (AUTO) 74 % (42-75); PLATELET COUNT 172 10^3/uL (130-400); WHITE BLOOD COUNT 9.5 10^3/uL (4.3-11.0)
[2022-09-06] MEDS ORDERED: CATHETER FLUSH 10 ML SYR IV SCH (06:00)
--- NOTE | 2022-09-06 07:34 | Anesthesia-Regional Post-Op ---
Regional Patient Condition Mental Status: Alert, Oriented x3 Circulation: Same as Pre-Op Headache: Absent Sensation: Full Recovery Motor Block: Absent Post Op Complications Complications None Follow Up Care/Instructions Patient Instructions None needed. Anesthesia/Patient Condition Patient is doing well, no complaints, stable vital signs, no apparent adverse anesthesia problems. No complications reported per nursing. D/C home per [facility] Criteria: Yes STEVE CHAUDHARY CRNA Sep 06, 2022 07:34
[2022-09-06] MEDS: FERROUS SULF 325 MG (IRON) TAB PO SCH (09:29)
[2022-09-06] MEDS: DOCUSATE SODIUM 100 MG (COLACE) CAP PO SCH ×2 (09:29→20:26)
[2022-09-06] MEDS: PRENATAL VITAMIN 1 EA TAB PO SCH (09:29)
[2022-09-06] MEDS ORDERED: MEASLES,MUMPS,RUBELLA 1 EA INJ ONE (17:47)
[2022-09-07 05:05] VITALS: BP 102/59
[2022-09-07] MEDS: IBUPROFEN 600 MG (MOTRIN) TAB PO SCH ×2 (05:12→11:36)
--- NOTE | 2022-09-07 08:00 | Postpartum Progress Note ---
Note Note Day # 2 Subjective: Patient is without complaints. Ambulating, voiding. Tolerating a regular diet without nausea or vomiting. Normal lochia. Pain is well controlled with oral pain medications. Objective: Physical Exam: General - Alert and oriented, no apparent distress Abdomen - Soft, appropriately tender to palpation, non-distended, fundus firm at umbilicus Extremities - no edema, negative Barb's bilaterally Assessment: PPD 2 NVD Acute blood loss anemia superimposed on anemia of Plan: Routine care. Encourage breast feeding. Encourage ambulation. Ferrous sulfate supplementation. Plan for discharge today Vitals - Labs Vital Signs - I&O Vital Signs Date Time Temp Pulse Resp B/P (MAP) Pulse Ox O2 Delivery O2 Flow Rate FiO2 09/07/22 05:05 36.6 82 16 102/59 (73) 99 Room Air 09/06/22 23:01 36.5 73 17 111/63 (79) 99 Room Air 09/06/22 17:41 36.9 74 18 105/57 (73) 99 Room Air 09/06/22 17:35 36.9 09/06/22 13:15 36.8 76 18 108/57 (74) 100 Room Air 09/06/22 09:27 36.8 74 18 111/57 (75) 98 Room Air MICHAEL NATARAJAN DO Sep 07, 2022 08:00
--- NOTE | 2022-09-07 08:01 | Discharge Inst-Women's Service ---
Discharge Inst-Women's Serv Depart Medication/Instructions New, Converted or Re-Newed RX: Transmitted to Pharmacy Final Diagnosis PPD 2 NVD Problems Reviewed?: Yes Consults/Follow Up Additional Follow Up: Yes Orders/Referrals Dr. Natarajan in 6 weeks Activity Activity: Activity as Tolerated Driving Instructions: No Driving for 1 Week NO SMOKING: NO SMOKING Nothing Inside Vagina: No Douching, No [place], No Tampons Diet Discharge Diet: No Restrictions Symptoms to Report to : Bleeding Excessive, Pain Increased, Fever Over 101 Degrees F, Vaginal Bleeding Increase, Questions/Concerns For Any Problems or Questions: Contact Your Physician MICHAEL NATARAJAN DO Sep 07, 2022 08:01
[2022-09-07] MEDS ORDERED: DIBU30OI TOP (08:02)
[2022-09-07] MEDS ORDERED: DOCU100C37 PO (08:02)
[2022-09-07] MEDS ORDERED: FERR325T24 PO (08:02)
[2022-09-07] MEDS ORDERED: IBUP-844 PO (08:02)
[2022-09-07] MEDS ORDERED: BENZ78AE5 TP (08:02)
[2022-09-07] MEDS ORDERED: ACHD5005 PO (08:02)
[2022-09-07] MEDS: PRENATAL VITAMIN 1 EA TAB PO SCH (09:22)
[2022-09-07] MEDS: DOCUSATE SODIUM 100 MG (COLACE) CAP PO SCH (09:22)
[2022-09-07] MEDS: FERROUS SULF 325 MG (IRON) TAB PO SCH (09:23)
[2022-09-07 10:00] VITALS: BP 105/58
== END 2022-09-07 11:55 | disposition home or self-care (01) | DRG 806 ==
LOC: WSo 20:19 → LDRP 20:20 → WSo 20:41 → LDRP 20:42
PROVIDERS: ADMIT Obstetrics & Gynecology; ATTEND Obstetrics & Gynecology
PROC: 10E0XZZ Delivery of Products of Conception, External Approach (ICD-10-PCS; principal; 2022-09-05)
PROC: 0KQM0ZZ Repair Perineum Muscle, Open Approach (ICD-10-PCS; 2022-09-05)
PROC: 10907ZC Drainage of Amniotic Fluid, Therapeutic from Products of Conception, Via Natural or Artificial Opening (ICD-10-PCS; 2022-09-05)
DX: O76 Abnormality in fetal heart rate and rhythm complicating labor and delivery (principal); D62 Acute posthemorrhagic anemia; Z37.0 Single live birth; Z3A.39 39 weeks gestation of pregnancy; O69.81X0 Labor and delivery complicated by cord around neck, without compression, not applicable or unspecified; O70.1 Second degree perineal laceration during delivery; O99.02 Anemia complicating childbirth
CPT/HCPCS: 36415; 81000; 85025; 86780; 86850; 86900; 86901; 90707; 99212